=== PATIENT | male | born 1975 | race African-American/Black ===

== ENCOUNTER 2016-09-10 21:50 | Emergency (ER) | payer SELFPAY ==
--- NOTE | 2016-09-10 22:35 | ER Document Report ---
ED General - General Information source: Patient TRAVEL OUTSIDE OF THE [place] IN LAST 30 DAYS: No - HPI Patient complains to provider of: Decreased Appetite Onset: Other - 09/07/2016 Onset/Duration: Gradual, Persistent Associated symptoms: Other - See narrative. denies: Nonproductive cough, Productive cough, Fever <TERRENCE العلي - Last Filed: 09/10/16 22:51> <HARSHAL FAJARDO - Last Filed: 09/11/16 00:54> - General Chief Complaint: Heat Exposure Stated Complaint: WEAKNESS Time Seen by Provider: 09/10/16 22:34 Notes: Patient is a 40-year-old male, with history of hypertension, presenting to the emergency department concerned because he has no appetite after significant exercise , September 06, 2016. Patient states that he decided to ride his bike for exercise 09/06, and 09/07/16 was working in the sun all afternoon. Patient states she has not felt well since. Has had no appetite and bilateral leg cramps. Patient reports drinking water, denies fever or cough. Patient's primary care physician is Dr. Mccormack. (TERRENCE العلي) - Related Data Allergies/Adverse Reactions: No Known Allergies Allergy (Verified 02/12/16 12:34) Past Medical History - General Information source: Patient - Social History Smoking Status: Never Smoker Cigarette use (# per day): No Frequency of alcohol use: None Family History: Reviewed & Not Pertinent, CAD, CVA, DM, Hyperlipidemia, Hypertension, Thyroid Disfunction Patient has suicidal ideation: No Patient has homicidal ideation: No - Past Medical History Cardiac Medical History: Reports: Hx Hypercholesterolemia - Was taken off medication, Hx Hypertension Renal/ Medical History: Reports: Hx Kidney Stones. Denies: Hx Peritoneal Dialysis Past Surgical History: Reports: Hx Inguinal Hernia - Immunizations Hx Diphtheria, Pertussis, Tetanus Vaccination: Yes <TERRENCE العلي - Last Filed: 09/10/16 22:51> Review of Systems - Review of Systems Constitutional: No symptoms reported. denies: Fever EENT: No symptoms reported Cardiovascular: No symptoms reported Respiratory: No symptoms reported. denies: Cough Gastrointestinal: See HPI, Poor appetite. denies: Nausea, Poor fluid intake Genitourinary: No symptoms reported Male Genitourinary: No symptoms reported Musculoskeletal: See HPI, Other - Bilateral leg cramping Skin: No symptoms reported Hematologic/Lymphatic: No symptoms reported Neurological/Psychological: No symptoms reported -: Yes All other systems reviewed and negative <NINA العليICA - Last Filed: 09/10/16 22:51> Physical Exam - General General appearance: Alert In distress: None - HEENT Head: Normocephalic, Atraumatic Eyes: Normal Pupils: PERRL - Respiratory Respiratory status: No respiratory distress Chest status: Nontender Breath sounds: Normal Chest palpation: Normal - Cardiovascular Rhythm: Regular Heart sounds: Normal auscultation Murmur: No - Abdominal Inspection: Normal Distension: No distension Bowel sounds: Normal Tenderness: Nontender Organomegaly: No organomegaly - Back Back: Normal, Nontender - Extremities General upper extremity: Normal inspection, Nontender General lower extremity: Normal inspection, Nontender - Neurological Neuro grossly intact: Yes Cognition: Normal Orientation: AAOx4 [place] Coma Scale Eye Opening: Spontaneous [place] Coma Scale Verbal: Oriented [place] Coma Scale Motor: Obeys Commands [place] Coma Scale Total: 15 Speech: Normal - Psychological Associated symptoms: Normal affect, Normal mood - Skin Skin Temperature: Warm Skin Moisture: Dry Skin Color: Normal <SEVERIANOTERRENCE - Last Filed: 09/10/16 22:51> Course <SEVERIANOTERRENCE - Last Filed: 09/10/16 22:51> - Laboratory Result Diagrams: 09/10/16 22:57 09/10/16 23:35 <HARSHAL FAJARDO - Last Filed: 09/11/16 00:54> - Re-evaluation Re-evalutation: 09/11/16 00:52 The patient does admit that when he was working in the heat on Saturday he was not urinating much if any. He reports he did drink a lot of fluids, but he was not urinating. I explained to him that he has to drink enough fluids that he does have to urinate otherwise he will get dehydrated and injure his kidneys again as he has in the past. (HARSHAL FAJARDO) - Vital Signs Vital signs: Temp Pulse Resp BP Pulse Ox 98.0 F 97 16 143/106 H 98 09/10/16 21:56 09/10/16 21:56 09/10/16 21:56 09/10/16 21:56 09/10/16 21:56 - Laboratory Laboratory results interpreted by me: 09/10/16 09/10/16 09/10/16 22:57 23:35 23:55 RBC 5.98 H RDW 16.6 H Plt Count 111 L Creatinine 1.56 H Est GFR (Non-Af Amer) 50 L Direct Bilirubin 0.5 H Creatine Kinase 610 H Total Protein 8.5 H Urine Protein 30 H Urine Ketones TRACE H Urine Blood SMALL H Discharge <TERRENCE العلي - Last Filed: 09/10/16 22:51> <HARSHAL FAJARDO - Last Filed: 09/11/16 00:54> - Discharge Clinical Impression: Dehydration, Renal insufficiency, Poor appetite Rhabdomyolysis Qualifiers: Rhabdomyolysis type: non-traumatic Qualified Code(s): M62.82 - Rhabdomyolysis Condition: Stable Disposition: HOME, SELF-CARE Additional Instructions: Dehydration: Dehydration can result from vomiting or diarrhea, fever, or decreased intake of fluids. If severe, hospitalization and intravenous fluids may be required. Most cases are treated at home with fluids by mouth. For the next 24 hours, drink lots of clear fluids. In mild cases, this can be soda pop or sports drinks. For more severe dehydration, the doctor may recommend special fluids such as Pedialyte or Lytren. Try to get three liters ( 3 quarts) of fluid per day. If vomiting occurs, continue to drink the fluids frequently (every 15 to 20 minutes), but in small amounts (one or two ounces). Depending on the type of dehydration, the doctor may prescribe antinausea medicine or potassium replacements. Call the doctor or return for re-examination if you become progressively weak, vomit repeatedly, or have other new symptoms. Drink lots of fluids tonight and tomorrow. Rest and stay out of the heat for the next few days. Follow-up with your primary care provider for recheck this week. RETURN TO THE EMERGENCY ROOM IF ANY NEW OR WORSENING SYMPTOMS. Scribe Attestation: 09/11/16 00:54 I personally performed the services described in the documentation, reviewed and edited the documentation which was dictated to the scribe in my presence, and it accurately records my words and actions. (HARSHAL FAJARDO) Scribe Documentation - Scribe Written by Boubacar:: Boubacar Bingham, 09/10/2016 2235 acting as scribe for :: Amanda <TERRENCE العلي - Last Filed: 09/10/16 22:51>
[2016-09-10] MEDS ORDERED: NORMAL SALINE 1000 ML 1,000 ML IV ONE ×2 (22:41→23:52)
[2016-09-10 23:11] LABS: ABSOLUTE LYMPHOCYTES (AUTO) 1.5 10^3/uL (0.5-4.7); ABSOLUTE MONOCYTES (AUTO) 0.3 10^3/uL (0.1-1.4); ABSOLUTE NEUT (AUTO) 2.8 10^3/uL (1.7-8.2); BASOPHILS % (AUTO) 0.4 % (0-2); HEMOGLOBIN 16.7 g/dL (13.5-17.0); HGB HCT DIFFERENCE 1.1; LYMPHOCYTES % (AUTO) 32.5 % (13-45); MEAN CORPUSCULAR HGB CONC 34.2 g/dL (32.0-36.0); MEAN CORPUSCULAR VOLUME 82 fl (80-97); MONOCYTES % (AUTO) 7.3 % (3-13); RED BLOOD COUNT 5.98 10^6/uL (4.35-5.55); RED CELL DISTRIBUTION WIDTH 16.6 % (11.5-14.0); SEGMENTED NEUTROPHILS % (AUTO) 58.8 % (42-78); WHITE BLOOD COUNT 4.7 10^3/uL (4.0-10.5)
[2016-09-10 23:55] LABS: ALANINE AMINOTRANSFERASE 46 U/L (21-72); ALBUMIN 4.4 g/dL (3.5-5.0); ALKALINE PHOSPHATASE 67 U/L (38-126); ANION GAP 12 (5-19); ASPARTATE AMINO TRANSFERASE 48 U/L (17-59); BILIRUBIN,DIRECT 0.5 mg/dL (0.0-0.4); BLOOD UREA NITROGEN 17 mg/dL (7-20); CARBON DIOXIDE 22 mmol/L (22-30); CHLORIDE 106 mmol/L (98-107); CREATINE KINASE 610 U/L (55-170); CREATININE RESULT 1.56 mg/dL (0.52-1.25); GLUCOSE 93 mg/dL (75-110); MAGNESIUM 1.9 mg/dL (1.6-2.3); POTASSIUM 3.6 mmol/L (3.6-5.0); SODIUM 139.9 mmol/L (137-145); TOTAL PROTEIN 8.5 g/dL (6.3-8.2)
[2016-09-11 00:17] LABS: APPEARANCE,URINE CLEAR; BILIRUBIN,URINE NEGATIVE (NEGATIVE); GLUCOSE, URINE NEGATIVE (NEGATIVE); KETONES,URINE TRACE mg/dL (NEGATIVE); LEUKOCYTE ESTERASE,URINE NEGATIVE (NEGATIVE); NITRITE,URINE NEGATIVE (NEGATIVE); PROTEIN,URINE 30 mg/dL (NEGATIVE); UROBILINOGEN,URINE NEGATIVE mg/dL (<2.0)
[2016-09-11 01:04] VITALS: BP 127/92
== END 2016-09-11 01:04 | disposition home or self-care (01) ==
LOC: ER 21:50
DX: M62.82 Rhabdomyolysis (principal); E86.0 Dehydration; N28.9 Disorder of kidney and ureter, unspecified; R63.0 Anorexia; R53.1 Weakness; R25.2 Cramp and spasm
CPT/HCPCS: 99284; 36415; 82550; 83735; 85025; 80053; 81001; J7030 ×2

== ENCOUNTER 2017-03-17 18:02 | Inpatient (IN) | payer OTHER ==
[2017-03-17] MEDS ORDERED: NORMAL SALINE 1000 ML 1,000 ML IV ONE (18:36)
[2017-03-17] MEDS ORDERED: KETOROLAC TROMETHAMINE INJ/PF 30 MG/1 ML SDV IV ONE (18:36)
[2017-03-17] MEDS ORDERED: ONDANSETRON HCL INJ/PF 4 MG/2 ML SDV IV ONE (18:36)
--- NOTE | 2017-03-17 18:43 | ER Document Report ---
ED Medical Screen (RME) - General Chief Complaint: Abdominal, back pain, pain all over. Stated Complaint: STOMACH/BACK PAIN Time Seen by Provider: 03/17/17 18:36 TRAVEL OUTSIDE OF THE [place] IN LAST 30 DAYS: No - Related Data Allergies/Adverse Reactions: No Known Allergies Allergy (Verified 02/12/16 12:34) Home Medications: Current Home Medications Amlodipine Besylate [Norvasc 10 mg Tablet] 1 tab PO DAILY 03/17/17 [History] Metoprolol Tartrate [Metoprolol Tartrate] 1 tab PO DAILY 03/17/17 [History] Past Medical History - Social History Chew tobacco use (# tins/day): No Frequency of alcohol use: None Drug Abuse: None - Past Medical History Cardiac Medical History: Reports: Hx Hypercholesterolemia - Was taken off medication, Hx Hypertension Renal/ Medical History: Reports: Hx Kidney Stones. Denies: Hx Peritoneal Dialysis Past Surgical History: Reports: Hx Inguinal Hernia - Immunizations Hx Diphtheria, Pertussis, Tetanus Vaccination: Yes Physical Exam - Vital signs Vitals: Temp Pulse BP Pulse Ox 100.8 F H 111 H 145/89 H 98 03/17/17 18:21 03/17/17 18:21 03/17/17 18:21 03/17/17 18:21 Course - Vital Signs Vital signs: Temp Pulse Resp BP Pulse Ox 100.8 F H 111 H 145/89 H 98 03/17/17 18:21 03/17/17 18:21 03/17/17 18:21 03/17/17 18:21
[2017-03-17 19:31] LABS: MEAN CORPUSCULAR HEMOGLOBIN 29.5 pg (27.0-33.4); MEAN CORPUSCULAR VOLUME 80 fl (80-97)
[2017-03-17 19:32] LABS: APPEARANCE,URINE CLEAR; BILIRUBIN,URINE NEGATIVE (NEGATIVE); GLUCOSE, URINE NEGATIVE (NEGATIVE); KETONES,URINE NEGATIVE (NEGATIVE); LEUKOCYTE ESTERASE,URINE NEGATIVE (NEGATIVE); NITRITE,URINE NEGATIVE (NEGATIVE); PROTEIN,URINE NEGATIVE (NEGATIVE); URINE SPECIFIC GRAVITY 1.016; UROBILINOGEN,URINE NEGATIVE mg/dL (<2.0)
--- NOTE | 2017-03-17 19:58 | RADIOLOGY REPORT (SQ) ---
EXAM DESCRIPTION: ACUTE ABDOMEN SERIES COMPLETED DATE/TIME: 03/17/2017 7:34 pm REASON FOR STUDY: abd pain COMPARISON: None. NUMBER OF VIEWS: Three views. TECHNIQUE: Frontal chest, supine abdomen and upright/decubitus abdomen radiographic images acquired. LIMITATIONS: None. FINDINGS: CHEST: Lungs clear of infiltrates. FREE AIR: None. No abnormal gas collections. BOWEL GAS PATTERN: Nonobstructive pattern. No dilated loops or air fluid levels. CALCIFICATIONS: No suspicious calcifications. HARDWARE: None in the abdomen. SOFT TISSUES: No gross mass or suggestion of organomegaly. BONES: No acute fracture. No worrisome bone lesions. OTHER: No other significant finding. IMPRESSION: NO RADIOGRAPHIC EVIDENCE FOR ACUTE ABDOMINAL DISEASE. TECHNICAL DOCUMENTATION: JOB ID: [id number] [place]-72 2010 [employer]- All Rights Reserved
[2017-03-17 20:03] LABS: BACTERIA,URINE TRACE /HPF; RBC,URINE 0-1 /HPF; WBC,URINE 0-1 /HPF
[2017-03-17 20:41] LABS: HEMOGLOBIN 15.3 g/dL (13.5-17.0); HGB HCT DIFFERENCE 4.5; RED BLOOD COUNT 5.18 10^6/uL (4.35-5.55); WHITE BLOOD COUNT 13.5 10^3/uL (4.0-10.5)
[2017-03-17 20:42] LABS: HEMATOCRIT 41.4 % (37.9-51.0); MEAN CORPUSCULAR HGB CONC 36.9 g/dL (32.0-36.0); RED CELL DISTRIBUTION WIDTH 15.5 % (11.5-14.0)
[2017-03-17 20:46] LABS: ABSOLUTE EOSINOPHILS# (MANUAL) 0.1 10^3/uL (0.0-0.6); BAND NEUTROPHILS % (MANUAL) 1 % (3-5); BASOPHILS % (MANUAL) 0 % (0-2); EOSINOPHILS % (MANUAL) 1 % (0-6); LYMPHOCYTES % (MANUAL) 7 % (13-45); TOTAL CELLS COUNTED 100
[2017-03-17 20:48] LABS: TOXIC VACUOLATION PRESENT
[2017-03-17 20:49] LABS: ANISOCYTOSIS SLIGHT; MICROCYTOSIS SLIGHT; POIKILOCYTOSIS 1+; STOMATOCYTES 1+; TEAR DROP CELLS SLIGHT
[2017-03-17] MEDS ORDERED: ACETAMINOPHEN 325 MG TABLET PO ONE (21:00)
[2017-03-17 21:50] LABS: ALANINE AMINOTRANSFERASE 39 U/L (21-72); ALBUMIN 4.4 g/dL (3.5-5.0); ALKALINE PHOSPHATASE 64 U/L (38-126); ANION GAP 12 (5-19); ASPARTATE AMINO TRANSFERASE 25 U/L (17-59); BILIRUBIN,DIRECT 0.5 mg/dL (0.0-0.4); BILIRUBIN,TOTAL 0.7 mg/dL (0.2-1.3); BLOOD UREA NITROGEN 11 mg/dL (7-20); CALCIUM 8.8 mg/dL (8.4-10.2); CARBON DIOXIDE 25 mmol/L (22-30); CHLORIDE 103 mmol/L (98-107); CREATININE RESULT 1.04 mg/dL (0.52-1.25); GLUCOSE 116 mg/dL (75-110); LIPASE 1380.9 U/L (23-300); SODIUM 140.2 mmol/L (137-145); TOTAL PROTEIN 7.9 g/dL (6.3-8.2)
[2017-03-17] MEDS ORDERED: MORPHINE SULFATE 10 MG/ML INJ IV ONE (22:31)
--- NOTE | 2017-03-17 22:35 | ER Document Report ---
ED GI/ - General Chief Complaint: Abdominal, back pain, pain all over. Stated Complaint: STOMACH/BACK PAIN Time Seen by Provider: 03/17/17 18:36 Notes: Patient is a 41-year-old male comes emergency department for chief complaint of mid upper abdominal pain that started earlier today, he states that he vomited earlier, he has not eaten anything since this morning. He denies knowledge of fever although he was found to have a fever at triage. Patient states he had a normal bowel movement within the past day. He denies cough, shortness of breath , chest pain, flank pain. He denies any alcohol use, drug use, or smoking. Only past medical history reported is inguinal hernia repair and hypertension. TRAVEL OUTSIDE OF THE [place] IN LAST 30 DAYS: No - Related Data Allergies/Adverse Reactions: No Known Allergies Allergy (Verified 02/12/16 12:34) Home Medications: Current Home Medications Amlodipine Besylate [Norvasc 10 mg Tablet] 1 tab PO DAILY 03/17/17 [History] Metoprolol Tartrate [Metoprolol Tartrate] 1 tab PO DAILY 03/17/17 [History] Past Medical History - General Information source: Patient - Social History Smoking Status: Former Smoker Chew tobacco use (# tins/day): No Frequency of alcohol use: None Drug Abuse: None Lives with: Family Family History: Reviewed & Not Pertinent, CAD, CVA, DM, Hyperlipidemia, Hypertension, Thyroid Disfunction Patient has suicidal ideation: No Patient has homicidal ideation: No - Past Medical History Cardiac Medical History: Reports: Hx Hypercholesterolemia - Was taken off medication, Hx Hypertension Renal/ Medical History: Reports: Hx Kidney Stones. Denies: Hx Peritoneal Dialysis Past Surgical History: Reports: Hx Inguinal Hernia - Immunizations Hx Diphtheria, Pertussis, Tetanus Vaccination: Yes Review of Systems - Review of Systems Constitutional: See HPI EENT: No symptoms reported Cardiovascular: No symptoms reported Respiratory: No symptoms reported Gastrointestinal: See HPI Genitourinary: No symptoms reported Male Genitourinary: No symptoms reported Musculoskeletal: No symptoms reported Skin: No symptoms reported Hematologic/Lymphatic: No symptoms reported Neurological/Psychological: No symptoms reported Physical Exam - Vital signs Vitals: Temp Pulse BP Pulse Ox 100.8 F H 111 H 145/89 H 98 03/17/17 18:21 03/17/17 18:21 03/17/17 18:21 03/17/17 18:21 Interpretation: Normal - General General appearance: Appears well, Alert In distress: None - Patient does not appear to be in distress - HEENT Head: Normocephalic, Atraumatic Eyes: Normal Pupils: PERRL - Respiratory Respiratory status: No respiratory distress Chest status: Nontender Breath sounds: Normal Chest palpation: Normal - Cardiovascular Rhythm: Regular, Tachycardia - Borderline Heart sounds: Normal auscultation, S1 appreciated, S2 appreciated Murmur: No - Abdominal Inspection: Normal Distension: No distension Bowel sounds: Normal Tenderness: Tender - Tender in the epigastric, right upper quadrant, and mildly in the left upper quadrant areas. No guarding. No rigidity or rebound tenderness. Lower abdomen is benign.. No: Guarding - Back Back: Normal, Nontender. No: Tender - Extremities General upper extremity: Normal inspection, Nontender, Normal strength, Normal temperature General lower extremity: Normal inspection, Nontender, Normal strength, Normal temperature - Neurological Neuro grossly intact: Yes Cognition: Normal Orientation: AAOx4 [place] Coma Scale Eye Opening: Spontaneous [place] Coma Scale Verbal: Oriented [place] Coma Scale Motor: Obeys Commands [place] Coma Scale Total: 15 Speech: Normal Motor strength normal: LUE, RUE, LLE, RLE Sensory: Normal - Psychological Associated symptoms: Normal affect, Normal mood - Skin Skin Temperature: Warm Skin Moisture: Dry Skin Color: Normal Course - Re-evaluation Re-evalutation: Patient febrile, he has upper abdominal tenderness on examination with no overt guarding, no rigidity, no rebound tenderness. Concern for potential cholecystitis. Leukocytosis noted, only 1 band. Acute abdominal series was ordered in triage, this was reviewed and shows no concerning abnormalities. Ultrasound performed, shows normal gallbladder, no pericholecystic fluid or stones, normal ducts. Lipase is elevated at 1300, patient is much more comfortable after IV fluids and pain medication, concern because of fever for potential pancreatic abscess or other intra-abdominal pathology. CAT scan was performed after discussion with patient, CAT scan showing pancreatitis, splenomegaly, no acute concerning outer maladies otherwise. Uncertain of the cause of fever, however since there is no evidence of cholecystitis, pneumonia by exam, and no evidence of acute surgical abnormality or abscess at this time patient will not be covered with antibiotics. Potentially viral, mono test will be ordered. Blood cultures were sent. Discussed with Dr. Terrazas. Patient is having pain again, will re-medicate, will discuss with hospitalist for potential admission for acute pancreatitis. Discussed with Dr. Mccormack, patient's provider, patient will be admitted to telemetry. - Vital Signs Vital signs: Temp Pulse Resp BP Pulse Ox 99.1 F 111 H 17 124/86 H 99 03/18/17 03:17 03/17/17 18:21 03/18/17 04:01 03/18/17 04:01 03/18/17 04:01 - Laboratory Result Diagrams: 03/17/17 18:55 03/17/17 21:15 Laboratory results interpreted by me: 03/17/17 03/17/17 03/17/17 18:55 18:55 21:15 WBC 13.5 H MCHC 36.9 H RDW 15.5 H Seg Neuts % (Manual) 89 H Band Neutrophils % 1 L Lymphocytes % (Manual) 7 L Monocytes % (Manual) 2 L Abs Neuts (Manual) 12.2 H Glucose 116 H Direct Bilirubin 0.5 H Lipase 1380.9 H Urine Blood SMALL H Discharge - Discharge Clinical Impression: Upper abdominal pain Pancreatitis Qualifiers: Chronicity: acute Pancreatitis type: unspecified pancreatitis type Acute pancreatitis complication: unspecified Qualified Code(s): K85.90 - Acute pancreatitis without necrosis or infection, unspecified Vomiting Qualifiers: Vomiting type: unspecified Vomiting Intractability: non-intractable Nausea presence: with nausea Qualified Code(s): R11.2 - Nausea with vomiting, unspecified Fever Qualifiers: Fever type: unspecified Qualified Code(s): R50.9 - Fever, unspecified Condition: Stable Disposition: ADMITTED INPATIENT Admitting Provider: Hospitalist Unit Admitted: Telemetry
--- NOTE | 2017-03-17 23:57 | RADIOLOGY REPORT (SQ) ---
EXAM DESCRIPTION: U/S ABDOMEN LIMITED W/O DOP COMPLETED DATE/TIME: 03/17/2017 11:38 pm REASON FOR STUDY: RUQ and epigastric pain, fever, elev lipase COMPARISON: None. TECHNIQUE: Dynamic and static grayscale images acquired of the abdomen and recorded on PACS. Rodo dagoberto selected color Doppler and spectral images recorded. LIMITATIONS: None. FINDINGS: PANCREAS: No masses. Visualized pancreatic duct normal caliber. LIVER: No masses. Echotexture normal. LIVER VASCULATURE: Normal directional flow of the main portal vein and hepatic veins. GALLBLADDER: No stones. Normal wall thickness. No pericholecystic fluid. ULTRASOUND-DETECTED GARCIA'S SIGN: Negative. INTRAHEPATIC DUCTS AND COMMON DUCT: 0.3-cm diameter CBD and intrahepatic ducts normal caliber. No fi lling defects. INFERIOR VENA CAVA: Normal flow. AORTA: No aneurysm. RIGHT KIDNEY: Normal size. Normal echogenicity. No solid or suspicious masses. No hydronephrosis. No calcifications. PERITONEAL AND RIGHT PLEURAL SPACE: No ascites or effusions. OTHER: No other significant findings. IMPRESSION: NORMAL RIGHT UPPER QUADRANT ULTRASOUND. TECHNICAL DOCUMENTATION: JOB ID: [id number] [employer]- All Rights Reserved
[2017-03-18] MEDS ORDERED: NORMAL SALINE 1000 ML 1,000 ML IV ONE (00:35)
--- NOTE | 2017-03-18 01:59 | RADIOLOGY REPORT (SQ) ---
EXAM DESCRIPTION: CT ABD/PELVIS WITH IV ONLY COMPLETED DATE/TIME: 03/18/2017 1:37 am REASON FOR STUDY: fever, upper abd pain, elevated lipase COMPARISON: Ultrasound, 03/17/2017. TECHNIQUE: CT scan of the abdomen and pelvis performed using helical scanning technique with dynamic intravenous contrast injection. No oral contrast. Images reviewed with lung, soft tissue, and bone windows. Reconstructed coronal and sagittal MPR images reviewed. Delayed images for evaluation of the urinary system also acquired. All images stored on PACS. All CT scanners at this facility use dose modulation, iterative reconstruction, and/or weight based d osing when appropriate to reduce radiation dose to as low as reasonably achievable (ALARA). [facility]: Dose Right [facility]: CareDose [facility]: Dose Right [facility]: Teradose 4D [facility]: Life With Linda CONTRAST TYPE AND DOSE: 99 cc Isovue 370. RENAL FUNCTION: Creatinine 1.0. RADIATION DOSE: . LIMITATIONS: None. FINDINGS: LOWER CHEST: No significant findings. No nodules or infiltrates. LIVER: Normal size. No masses. No dilated ducts. SPLEEN: Moderate splenomegaly with splenic index of 1649. No focal lesions. PANCREAS: No masses. No significant calcifications. Small surrounding fluid and moderate inflamed fa t. GALLBLADDER: No identified stones by CT criteria. No inflammatory changes to suggest cholecystitis. ADRENAL GLANDS: No significant masses or asymmetry. RIGHT KIDNEY AND URETER: No solid masses. No significant calcifications. No hydronephrosis or hyd roureter. LEFT KIDNEY AND URETER: No solid masses. 1.0 cm stone. No hydronephrosis or hydroureter. Likely benign 1 cm cyst. AORTA AND VESSELS: No aneurysm. No dissection. Renal arteries, SMA, celiac without stenosis. RETROPERITONEUM: No retroperitoneal adenopathy, hemorrhage or masses. BOWEL AND PERITONEAL CAVITY: No masses or inflammatory changes. No free fluid or peritoneal masses. APPENDIX: Normal. PELVIS: No mass. No free fluid. Normal bladder. ABDOMINAL WALL: No masses. No hernias. BONES: No significant or acute findings. OTHER: No other significant finding. IMPRESSION: 1. Moderate pancreatitis pattern. 2. Moderate splenomegaly. 3. A [address] one. TECHNICAL DOCUMENTATION: JOB ID: [id number] Quality ID # [id number]: Final reports with documentation of one or more dose reduction techniques (e.g., Au tomated exposure control, adjustment of the mA and/or kV according to patient size, use of iterative reconstruction technique) 2010 [employer]- All Rights Reserved
[2017-03-18] MEDS ORDERED: MORPHINE SULFATE 10 MG/ML INJ IV ONE (02:09)
[2017-03-18] MEDS ORDERED: DEXTROSE 40% GEL 15 GM TUBE PO PRN ×2 (11:51)
[2017-03-18] MEDS ORDERED: GLUCAGON,HUMAN RECOMB 1 MG INJ SUBCUT PRN (11:51)
[2017-03-18] MEDS ORDERED: DEXTROSE 50%-WATER 25 GM/50 ML DISP.SYRIN IV PRN ×2 (11:51)
[2017-03-18 12:58] LABS: APPEARANCE,URINE CLEAR; BILIRUBIN,URINE NEGATIVE (NEGATIVE); GLUCOSE, URINE NEGATIVE (NEGATIVE); KETONES,URINE NEGATIVE (NEGATIVE); LEUKOCYTE ESTERASE,URINE NEGATIVE (NEGATIVE); NITRITE,URINE NEGATIVE (NEGATIVE); PROTEIN,URINE NEGATIVE (NEGATIVE); URINE SPECIFIC GRAVITY 1.019; UROBILINOGEN,URINE NEGATIVE mg/dL (<2.0)
[2017-03-18 13:01] LABS: MAGNESIUM 1.7 mg/dL (1.6-2.3); PHOSPHORUS 2.7 mg/dL (2.5-4.5)
[2017-03-18 13:15] LABS: TROPONIN I 0.013 ng/mL
[2017-03-18 13:16] LABS: BACTERIA,URINE 1+ /HPF
[2017-03-18 13:19] LABS: CREATINE KINASE MB < 0.22 ng/mL (<4.55)
[2017-03-18 13:32] LABS: THYROID STIMULATING HORMONE 0.27 uIU/mL (0.47-4.68)
[2017-03-18 13:45] LABS: URINE BARBITURATES SCREEN NEGATIVE; URINE METHADONE SCREEN NEGATIVE; URINE OPIATES LOW UNCONFIRMED POSITIVE; URINE PHENCYCLIDINE SCREEN NEGATIVE
[2017-03-18] MEDS: HYDROMORPHONE HCL INJ/PF 2 MG/ML AMPULE IV PRN ×2 (15:02→19:52)
[2017-03-18] MEDS: HEPARIN SOD (PORCINE) 5,000 UNIT/ML 1 ML SYRINGE SUBCUT SCH ×2 (15:15→22:00)
[2017-03-18 19:13] LABS: CREATINE KINASE MB < 0.22 ng/mL (<4.55); TROPONIN I < 0.012 ng/mL
--- NOTE | 2017-03-18 21:39 | PDOC H&P ---
History of Present Illness Admission Date/PCP: 03/18/17 02:51 AVIS RAY MD History of Present Illness: COSME LAMBERT is a 41 year old male, He came to the emergency room for evaluation of abdominal pain, he was found to have severely elevated serum lipase, CT scan of the abdomen and pelvis was done, it showed inflammation of the pancreas.He does not drink alcohol, the ultrasound of the abdomen did not show any stones in the gallbladder Past Medical History Cardiac Medical History: Reports: Hyperlipidema - Was taken off medication, Hypertension Social History Lives with: Family Smoking Status: Former Smoker Last Time Smoked: [id number] Frequency of Alcohol Use: None Drugs: None Hx Prescription Drug Abuse: No - Advance Directive Resuscitation Status: Full Code Family History Family History: Reviewed & Not Pertinent, CAD, CVA, DM, Hyperlipidemia, Hypertension, Thyroid Disfunction Parental Family History Reviewed: Yes Children Family History Reviewed: Yes Sibling(s) Family History Reviewed.: Yes Medication/Allergy Home Medications: Amlodipine Besylate [Norvasc 10 mg Tablet] 10 mg PO DAILY 03/18/17 Metoprolol Tartrate [Lopressor 100 mg Tablet] 100 mg PO DAILY 03/18/17 Allergies/Adverse Reactions: No Known Allergies Allergy (Verified 03/18/17 15:03) Review of Systems Constitutional: ABSENT: chills, fever(s), headache(s), weight gain, weight loss Eyes: ABSENT: visual disturbances Ears: ABSENT: hearing changes Cardiovascular: ABSENT: chest pain, dyspnea on exertion, edema, orthropnea, palpitations Respiratory: ABSENT: cough, hemoptysis Gastrointestinal: PRESENT: abdominal pain Genitourinary: ABSENT: dysuria, hematuria Musculoskeletal: ABSENT: joint swelling Integumentary: ABSENT: rash, wounds Neurological: ABSENT: abnormal gait, abnormal speech, confusion, dizziness, focal weakness, syncope Psychiatric: ABSENT: anxiety, depression, homidical ideation, suicidal ideation Endocrine: ABSENT: cold intolerance, heat intolerance, menstrual abnormalities, polydipsia, polyuria Hematologic/Lymphatic: ABSENT: easy bleeding, easy bruising, lymphadenopathy Physical Exam Vital Signs: Temp Pulse Resp BP Pulse Ox 99.0 F 107 H 24 H 133/82 H 96 03/18/17 21:05 03/18/17 21:05 03/18/17 21:05 03/18/17 21:05 03/18/17 21:05 Intake & Output 03/17/17 03/18/17 03/19/17 06:59 06:59 06:59 Intake Total 100 Output Total 200 Balance -100 General appearance: PRESENT: no acute distress, well-developed, well-nourished Head exam: PRESENT: atraumatic, normocephalic Eye exam: PRESENT: conjunctiva pink, EOMI, PERRLA Ear exam: PRESENT: normal external ear exam Mouth exam: PRESENT: moist, tongue midline Neck exam: PRESENT: full ROM Respiratory exam: PRESENT: clear to auscultation nakul Cardiovascular exam: PRESENT: RRR, +S1, +S2 Pulses: PRESENT: normal dorsalis pedis pul, +2 pedal pulses bilateral Vascular exam: PRESENT: normal capillary refill GI/Abdominal exam: PRESENT: normal bowel sounds, soft, tenderness Rectal exam: PRESENT: deferred Neurological exam: PRESENT: alert, awake, oriented to person, oriented to place , oriented to time, oriented to situation, CN II-XII grossly intact Psychiatric exam: PRESENT: appropriate affect, normal mood Skin exam: PRESENT: dry, intact, warm Results Laboratory Results: 03/18/17 03/18/17 03/18/17 12:20 12:25 12:25 Phosphorus 2.7 Magnesium 1.7 Ammonia 11.7 TSH 0.27 L Free T4 0.85 Urine Color Urine Appearance Urine pH Ur Specific [place] Urine Protein Urine Glucose (UA) Urine Ketones Urine Blood Urine Nitrite Ur Leukocyte Esterase Ur Squamous Epith Cells 03/18/17 12:25 Phosphorus Magnesium Ammonia TSH Free T4 Urine Color YELLOW Urine Appearance CLEAR Urine pH 6.0 Ur Specific [place] 1.019 Urine Protein NEGATIVE Urine Glucose (UA) NEGATIVE Urine Ketones NEGATIVE Urine Blood NEGATIVE Urine Nitrite NEGATIVE Ur Leukocyte Esterase NEGATIVE Ur Squamous Epith Cells FEW 03/18/17 03/18/17 03/18/17 12:25 12:25 12:25 Creatine Kinase 108 CK-MB (CK-2) < 0.22 Troponin I 0.013 NT-Pro-B Natriuret Pep 132 H 03/18/17 03/18/17 18:37 18:37 Creatine Kinase 86 CK-MB (CK-2) < 0.22 Troponin I < 0.012 NT-Pro-B Natriuret Pep Impressions: Acute Abdomen Series 03/17/17 18:36 IMPRESSION: NO RADIOGRAPHIC EVIDENCE FOR ACUTE ABDOMINAL DISEASE. Abdomen Ultrasound 03/17/17 22:33 IMPRESSION: NORMAL RIGHT UPPER QUADRANT ULTRASOUND. Abdomen/Pelvis CT 03/18/17 00:33 IMPRESSION: 1. Moderate pancreatitis pattern. 2. Moderate splenomegaly. 3. A 1 cm left renal stone. Assessment & Plan - Diagnosis (1) Acute pancreatitis Qualifiers: Pancreatitis type: idiopathic Acute pancreatitis complication: no infection or necrosis Qualified Code(s): K85.00 - Idiopathic acute pancreatitis without necrosis or infection Is this a current diagnosis for this admission?: Yes Plan: Patient was admitted into the hospital for the management of acute pancreatitis is most likely for metabolic, hyperlipidemia he be kept n.p.o.
[2017-03-18] MEDS: DEXTROSE 5%-NORMAL SALINE 1,000 ML IV PRN (22:01)
[2017-03-19 01:03] LABS: CREATINE KINASE MB < 0.22 ng/mL (<4.55); TROPONIN I < 0.012 ng/mL
[2017-03-19] MEDS: HYDROMORPHONE HCL INJ/PF 2 MG/ML AMPULE IV PRN ×4 (02:33→19:54)
[2017-03-19] MEDS: DEXTROSE 5%-NORMAL SALINE 1,000 ML IV PRN ×2 (02:35→21:15)
[2017-03-19] MEDS: HEPARIN SOD (PORCINE) 5,000 UNIT/ML 1 ML SYRINGE SUBCUT SCH ×3 (06:19→20:25)
[2017-03-19 06:36] LABS: ABSOLUTE LYMPHOCYTES (AUTO) 1.2 10^3/uL (0.5-4.7); ABSOLUTE MONOCYTES (AUTO) 0.4 10^3/uL (0.1-1.4); BASOPHILS % (AUTO) 0.3 % (0-2); EOSINOPHILS % (AUTO) 0.3 % (0-6); HGB HCT DIFFERENCE 1.3; LYMPHOCYTES % (AUTO) 15.9 % (13-45); MEAN CORPUSCULAR HEMOGLOBIN 28.2 pg (27.0-33.4); MEAN CORPUSCULAR HGB CONC 34.7 g/dL (32.0-36.0); MEAN CORPUSCULAR VOLUME 81 fl (80-97); MONOCYTES % (AUTO) 4.9 % (3-13); RED BLOOD COUNT 3.93 10^6/uL (4.35-5.55); SEGMENTED NEUTROPHILS % (AUTO) 78.6 % (42-78); WHITE BLOOD COUNT 7.7 10^3/uL (4.0-10.5)
[2017-03-19 06:41] LABS: ALANINE AMINOTRANSFERASE 30 U/L (21-72); ALBUMIN 3.5 g/dL (3.5-5.0); ALKALINE PHOSPHATASE 49 U/L (38-126); AMYLASE 92 U/L (30-110); ANION GAP 10 (5-19); ASPARTATE AMINO TRANSFERASE 18 U/L (17-59); BILIRUBIN,DIRECT 0.5 mg/dL (0.0-0.4); BILIRUBIN,TOTAL 0.8 mg/dL (0.2-1.3); BLOOD UREA NITROGEN 12 mg/dL (7-20); CALCIUM 8.5 mg/dL (8.4-10.2); CARBON DIOXIDE 28 mmol/L (22-30); CHLORIDE 104 mmol/L (98-107); CREATININE RESULT 1.13 mg/dL (0.52-1.25); Direct HDL 28 mg/dL (>40); GLUCOSE 111 mg/dL (75-110); LIPASE 264.2 U/L (23-300); POTASSIUM 3.8 mmol/L (3.6-5.0); SODIUM 142.3 mmol/L (137-145); TOTAL PROTEIN 6.8 g/dL (6.3-8.2)
[2017-03-19 06:52] LABS: DIRECT LDL 46 mg/dL (<100)
[2017-03-19 07:00] LABS: CHOLESTEROL 455.64 mg/dL (0-200); TRIGLYCERIDES 739 mg/dL (<150)
[2017-03-19 07:44] LABS: HEMOGLOBIN 11.1 g/dL (13.5-17.0)
--- NOTE | 2017-03-19 22:04 | PDOC PROGRESS REPORT ---
Subjective Progress Note for:: 03/19/17 Subjective:: Patient was seen by the bedside, he has less abdominal pain, the lipase is down , abdomen is soft, the etiology of the acute pancreatitis is most likely hypertriglyceridemia. Reason For Visit: ACUTE PANCREATITIS Physical Exam Vital Signs: Temp Pulse Resp BP Pulse Ox 99.3 F 105 H 16 121/76 100 03/19/17 16:49 03/19/17 19:00 03/19/17 16:49 03/19/17 16:49 03/19/17 16:49 Intake & Output 03/18/17 03/19/17 03/20/17 06:59 06:59 06:59 Intake Total 1300 900 Output Total 1000 800 Balance 300 100 Weight 96.3 kg General appearance: PRESENT: no acute distress Eye exam: PRESENT: PERRLA Respiratory exam: PRESENT: clear to auscultation nakul Cardiovascular exam: PRESENT: +S1, +S2 GI/Abdominal exam: PRESENT: soft Neurological exam: PRESENT: alert Results Laboratory Results: 03/19/17 05:49 03/19/17 05:49 03/19/17 03/19/17 05:49 05:49 WBC 7.7 RBC 3.93 L Hgb 11.1 L D Hct 32.0 L MCV 81 MCH 28.2 MCHC 34.7 RDW 16.0 H Plt Count 90 L Seg Neutrophils % 78.6 H Lymphocytes % 15.9 Monocytes % 4.9 Eosinophils % 0.3 Basophils % 0.3 Absolute Neutrophils 6.0 Absolute Lymphocytes 1.2 Absolute Monocytes 0.4 Absolute Eosinophils 0.0 Absolute Basophils 0.0 Sodium 142.3 Potassium 3.8 Chloride 104 Carbon Dioxide 28 Anion Gap 10 BUN 12 Creatinine 1.13 Est GFR ( Amer) > 60 Est GFR (Non-Af Amer) > 60 Glucose 111 H Calcium 8.5 Total Bilirubin 0.8 AST 18 ALT 30 Alkaline Phosphatase 49 Total Protein 6.8 Albumin 3.5 Triglycerides 739 H Cholesterol 455.64 H LDL Cholesterol Direct 46 VLDL Cholesterol UNABLE TO CALCULATE HDL Cholesterol 28 L Amylase 92 Lipase 264.2 03/18/17 03/18/17 03/18/17 12:25 12:25 12:25 Creatine Kinase 108 CK-MB (CK-2) < 0.22 Troponin I 0.013 NT-Pro-B Natriuret Pep 132 H 03/18/17 03/18/17 03/19/17 18:37 18:37 00:25 Creatine Kinase 86 78 CK-MB (CK-2) < 0.22 Troponin I < 0.012 NT-Pro-B Natriuret Pep 03/19/17 00:25 Creatine Kinase CK-MB (CK-2) < 0.22 Troponin I < 0.012 NT-Pro-B Natriuret Pep Impressions: Acute Abdomen Series 03/17/17 18:36 IMPRESSION: NO RADIOGRAPHIC EVIDENCE FOR ACUTE ABDOMINAL DISEASE. Abdomen Ultrasound 03/17/17 22:33 IMPRESSION: NORMAL RIGHT UPPER QUADRANT ULTRASOUND. Abdomen/Pelvis CT 03/18/17 00:33 IMPRESSION: 1. Moderate pancreatitis pattern. 2. Moderate splenomegaly. 3. A 1 cm left renal stone. Assessment & Plan - Diagnosis (1) Acute pancreatitis Qualifiers: Pancreatitis type: idiopathic Acute pancreatitis complication: no infection or necrosis Qualified Code(s): K85.00 - Idiopathic acute pancreatitis without necrosis or infection Is this a current diagnosis for this admission?: Yes
[2017-03-20] MEDS: HEPARIN SOD (PORCINE) 5,000 UNIT/ML 1 ML SYRINGE SUBCUT SCH ×2 (01:21→13:50)
[2017-03-20] MEDS: HYDROMORPHONE HCL INJ/PF 2 MG/ML AMPULE IV PRN ×2 (03:49→12:24)
[2017-03-20 04:40] LABS: ABSOLUTE EOSINOPHILS # (AUTO) 0.1 10^3/uL (0.0-0.6); ABSOLUTE LYMPHOCYTES (AUTO) 1.2 10^3/uL (0.5-4.7); ABSOLUTE MONOCYTES (AUTO) 0.3 10^3/uL (0.1-1.4); BASOPHILS % (AUTO) 0.3 % (0-2); HEMATOCRIT 32.4 % (37.9-51.0); HEMOGLOBIN 11.2 g/dL (13.5-17.0); HGB HCT DIFFERENCE 1.2; LYMPHOCYTES % (AUTO) 18.3 % (13-45); MEAN CORPUSCULAR HEMOGLOBIN 27.8 pg (27.0-33.4); MEAN CORPUSCULAR HGB CONC 34.6 g/dL (32.0-36.0); MEAN CORPUSCULAR VOLUME 80 fl (80-97); MONOCYTES % (AUTO) 4.7 % (3-13); RED BLOOD COUNT 4.03 10^6/uL (4.35-5.55); RED CELL DISTRIBUTION WIDTH 15.4 % (11.5-14.0); SEGMENTED NEUTROPHILS % (AUTO) 75.7 % (42-78); WHITE BLOOD COUNT 6.5 10^3/uL (4.0-10.5)
[2017-03-20 04:51] LABS: ALBUMIN 3.7 g/dL (3.5-5.0); AMYLASE 110 U/L (30-110); ANION GAP 11 (5-19); CARBON DIOXIDE 27 mmol/L (22-30); CHLORIDE 105 mmol/L (98-107); CREATININE RESULT 1.11 mg/dL (0.52-1.25); GLUCOSE 112 mg/dL (75-110); POTASSIUM 3.8 mmol/L (3.6-5.0); SODIUM 142.9 mmol/L (137-145); TOTAL PROTEIN 7.1 g/dL (6.3-8.2)
[2017-03-20 04:52] LABS: ALANINE AMINOTRANSFERASE 35 U/L (21-72); ALKALINE PHOSPHATASE 56 U/L (38-126); ASPARTATE AMINO TRANSFERASE 17 U/L (17-59); BILIRUBIN,DIRECT 0.5 mg/dL (0.0-0.4); BILIRUBIN,TOTAL 0.7 mg/dL (0.2-1.3); BLOOD UREA NITROGEN 10 mg/dL (7-20); LIPASE 352.6 U/L (23-300)
[2017-03-20] MEDS: DEXTROSE 5%-NORMAL SALINE 1,000 ML IV PRN (08:37)
--- NOTE | 2017-03-20 16:11 | PDOC DISCHARGE SUMMARY ---
General - Admit/Disc Date/PCP Admission Date/Primary Care Provider: 03/18/17 02:51 AVIS RAY MD Discharge Date: 03/20/17 - Discharge Diagnosis (1) Acute pancreatitis Is this a current diagnosis for this admission?: Yes (2) Hypertriglyceridemia Is this a current diagnosis for this admission?: Yes - Additional Information Resuscitation Status: Full Code Discharge Diet: Regular Discharge Activity: Activity As Tolerated Home Medications: Amlodipine Besylate [Norvasc 10 mg Tablet] 10 mg PO DAILY 03/18/17 Metoprolol Tartrate [Lopressor 100 mg Tablet] 100 mg PO DAILY 03/18/17 Fenofibrate Nanocrystallized [Tricor 145 mg Tablet] 145 mg PO DAILY #90 tablet 03/20/17 Tramadol HCl 50 mg PO Q8 PRN #30 tablet 03/20/17 History of Present Illness History of Present Illness: COSME LAMBERT is a 41 year old male, He came to the emergency room for evaluation of abdominal pain, he was found to have severely elevated serum lipase, CT scan of the abdomen and pelvis was done, it showed inflammation of the pancreas.He does not drink alcohol, the ultrasound of the abdomen did not show any stones in the gallbladder Hospital Course Hospital Course: Patient was admitted for the management of acute pancreatitis, he presented with abdominal pain, he had elevated serum lipase, CT scan of the abdomen and pelvis was done IT showed inflamed pancreas. Ultrasound of the gallbladder was negative for stones, a CAT scan of the abdomen and pelvis confirmed pancreatitis.. He was managed conservatively, he was kept n.p.o. IV fluid therapy, pain control with Dilaudid the serum triglyceride was elevated, it was felt that this is the potential etiology of the acute pancreatitis. Patient has remained stable for the last 2 days he be discharged home today, he does not drink alcohol Physical Exam Vital Signs: Temp Pulse Resp BP Pulse Ox 99.3 F 84 16 124/83 98 03/20/17 12:40 03/20/17 13:49 03/20/17 12:40 03/20/17 12:40 03/20/17 12:40 Intake & Output 03/19/17 03/20/17 03/21/17 06:59 06:59 06:59 Intake Total 1300 2100 Output Total 1000 1275 Balance 300 825 Weight 96.3 kg 95.2 kg General appearance: PRESENT: no acute distress, well-developed, well-nourished Head exam: PRESENT: atraumatic, normocephalic Eye exam: PRESENT: conjunctiva pink, EOMI, PERRLA Ear exam: PRESENT: normal external ear exam Mouth exam: PRESENT: moist, tongue midline Neck exam: PRESENT: full ROM Respiratory exam: PRESENT: clear to auscultation nakul Cardiovascular exam: PRESENT: RRR, +S1, +S2 Pulses: PRESENT: normal dorsalis pedis pul, +2 pedal pulses bilateral Vascular exam: PRESENT: normal capillary refill GI/Abdominal exam: PRESENT: normal bowel sounds, soft Rectal exam: PRESENT: deferred Neurological exam: PRESENT: alert, awake, oriented to person, oriented to place , oriented to time, oriented to situation, CN II-XII grossly intact Psychiatric exam: PRESENT: appropriate affect, normal mood Skin exam: PRESENT: dry, intact, warm Results Laboratory Results: 03/20/17 03:38 03/20/17 03:38 03/20/17 03/20/17 03:38 03:38 WBC 6.5 RBC 4.03 L Hgb 11.2 L Hct 32.4 L MCV 80 MCH 27.8 MCHC 34.6 RDW 15.4 H Plt Count 93 L Seg Neutrophils % 75.7 Lymphocytes % 18.3 Monocytes % 4.7 Eosinophils % 1.0 Basophils % 0.3 Absolute Neutrophils 5.0 Absolute Lymphocytes 1.2 Absolute Monocytes 0.3 Absolute Eosinophils 0.1 Absolute Basophils 0.0 Sodium 142.9 Potassium 3.8 Chloride 105 Carbon Dioxide 27 Anion Gap 11 BUN 10 Creatinine 1.11 Est GFR ( Amer) > 60 Est GFR (Non-Af Amer) > 60 Glucose 112 H Calcium 9.0 Total Bilirubin 0.7 AST 17 ALT 35 Alkaline Phosphatase 56 Total Protein 7.1 Albumin 3.7 Amylase 110 Lipase 352.6 H 03/18/17 03/18/17 03/18/17 12:25 12:25 12:25 Creatine Kinase 108 CK-MB (CK-2) < 0.22 Troponin I 0.013 NT-Pro-B Natriuret Pep 132 H 03/18/17 03/18/17 03/19/17 18:37 18:37 00:25 Creatine Kinase 86 78 CK-MB (CK-2) < 0.22 Troponin I < 0.012 NT-Pro-B Natriuret Pep 03/19/17 00:25 Creatine Kinase CK-MB (CK-2) < 0.22 Troponin I < 0.012 NT-Pro-B Natriuret Pep Impressions: Acute Abdomen Series 03/17/17 18:36 IMPRESSION: NO RADIOGRAPHIC EVIDENCE FOR ACUTE ABDOMINAL DISEASE. Abdomen Ultrasound 03/17/17 22:33 IMPRESSION: NORMAL RIGHT UPPER QUADRANT ULTRASOUND. Abdomen/Pelvis CT 03/18/17 00:33 IMPRESSION: 1. Moderate pancreatitis pattern. 2. Moderate splenomegaly. 3. A 1 cm left renal stone.
[2017-03-20 16:16] VITALS: BP 131/76
== END 2017-03-20 17:21 | disposition home or self-care (01) | DRG 440 ==
LOC: ER 18:02 → EH 03-18 02:51 → 3N 03-18 18:24
PROVIDERS: ADMIT Internal Medicine; ATTEND Internal Medicine
DX: K85.00 Idiopathic acute pancreatitis without necrosis or infection (principal); E78.1 Pure hyperglyceridemia; E78.5 Hyperlipidemia, unspecified; I10 Essential (primary) hypertension; N20.0 Calculus of kidney; Z79.899 Other long term (current) drug therapy; Z87.891 Personal history of nicotine dependence; Z82.3 Family history of stroke; Z83.3 Family history of diabetes mellitus; Z83.49 Family history of other endocrine, nutritional and metabolic diseases; Z82.49 Family history of ischemic heart disease and other diseases of the circulatory system
CPT/HCPCS: 36415; 74022; 74177; 76705; 80048; 80053; 80061; 80076; 80307; 81001; 82140; 82150; 82550; 82553; 83036; 83690; 83735; 83880; 84100; 84439; 84443; 84484; 85025; 86308; 87040; 96361; 96374; 96375; 99285; J1170; J1644; J1885; J2270; J2405; J7030

== ENCOUNTER 2017-12-18 11:52 | Emergency (ER) | payer OTHER ==
[2017-12-18] MEDS ORDERED: NORMAL SALINE 1000 ML 1,000 ML IV ONE ×2 (12:40→15:30)
--- NOTE | 2017-12-18 12:41 | ER Document Report ---
HPI - HPI Pain Level: 4 Past Medical History - General Information source: Patient - Social History Smoking Status: Current Every Day Smoker Lives with: Family Family History: Reviewed & Not Pertinent, CAD, CVA, DM, Hyperlipidemia, Hypertension, Thyroid Disfunction - Past Medical History Cardiac Medical History: Reports: Hx Hypercholesterolemia - Was taken off medication, Hx Hypertension Renal/ Medical History: Reports: Hx Kidney Stones Past Surgical History: Reports: Hx Inguinal Hernia - Immunizations Hx Diphtheria, Pertussis, Tetanus Vaccination: Yes Vertical Provider Document - CONSTITUTIONAL Agree With Documented VS: Yes Exam Limitations: No Limitations - INFECTION CONTROL TRAVEL OUTSIDE OF THE [place] IN LAST 30 DAYS: No - HEENT HEENT: Normal ENT Exam - NECK Neck: Supple. negative: Lymphadenopathy-Left, Lymphadenopathy-Right - RESPIRATORY Respiratory: Breath Sounds Normal, No Respiratory Distress - CARDIOVASCULAR Cardiovascular: Regular Rate, Regular Rhythm - GI/ABDOMEN Gastrointestinal: Abdomen Soft, Abdomen Non-Tender, No Organomegaly - MUSCULOSKELETAL/EXTREMETIES Musculoskeletal/Extremeties: MAEW, FROM, Non-Tender Notes: no swelling - NEURO Level of Consciousness: Awake, Alert Motor/Sensory: No Motor Deficit, No Sensory Deficit - DERM Integumentary: No Rash Course - Re-evaluation Re-evalutation: 12/18/17 14:24 pt feels better, IV infusing. The chemistry was hemolyzed and they have not redrawn him yet. 12/18/17 14:25 12/18/17 15:28 lab redrew the chemistry and sent to the lab via tube. Chemistry said that she will get Dasha to come draw out and walk the tube down and I told her it needed to be run stat - Vital Signs Vital signs: Temp Pulse Resp BP Pulse Ox 98.6 F 71 18 139/104 H 100 12/18/17 11:56 12/18/17 11:56 12/18/17 11:56 12/18/17 11:56 12/18/17 11:56 - Laboratory Result Diagrams: 12/18/17 13:05 12/18/17 15:45 Discharge - Discharge Clinical Impression: Decreased appetite Vomiting Qualifiers: Vomiting type: unspecified Vomiting Intractability: non-intractable Nausea presence: with nausea Qualified Code(s): R11.2 - Nausea with vomiting, unspecified Leg pain Qualifiers: Laterality: bilateral Qualified Code(s): M79.604 - Pain in right leg; M79.605 - Pain in left leg; M79.605 - Pain in left leg Condition: Good Disposition: HOME, SELF-CARE Instructions: Vomiting ([facility]), Intravenous (IV) Fluids ([facility]), Leg Cramps ([facility]) Additional Instructions: Drink plenty of fluids, advance diet as tolerated Return to the emergency room any concerns or worsening of symptoms Referrals: AVIS RAY MD [Primary Care Provider] - Follow up tomorrow
[2017-12-18 13:47] LABS: APPEARANCE,URINE CLEAR; BILIRUBIN,URINE NEGATIVE (NEGATIVE); COLOR,URINE YELLOW; GLUCOSE, URINE NEGATIVE (NEGATIVE); KETONES,URINE NEGATIVE (NEGATIVE); LEUKOCYTE ESTERASE,URINE TRACE (NEGATIVE); NITRITE,URINE NEGATIVE (NEGATIVE); PROTEIN,URINE 30 mg/dL (NEGATIVE); URINE SPECIFIC GRAVITY 1.021
[2017-12-18 13:54] LABS: HEMATOCRIT 43.6 % (37.9-51.0); HEMOGLOBIN 15.1 g/dL (13.5-17.0); MEAN CORPUSCULAR HEMOGLOBIN 27.9 pg (27.0-33.4); MEAN CORPUSCULAR HGB CONC 34.6 g/dL (32.0-36.0); MEAN CORPUSCULAR VOLUME 81 fl (80-97); PLATELET COUNT 180 10^3/uL (150-450); RED BLOOD COUNT 5.41 10^6/uL (4.35-5.55); RED CELL DISTRIBUTION WIDTH 16.9 % (11.5-14.0); WHITE BLOOD COUNT 4.5 10^3/uL (4.0-10.5)
[2017-12-18 14:26] LABS: ABSOLUTE LYMPHOCYTES# (MANUAL) 1.3 10^3/uL (0.5-4.7); ABSOLUTE MONOCYTES # (MANUAL) 0.1 10^3/uL (0.1-1.4); ABSOLUTE NEUTROPHILS# (MANUAL) 3.1 10^3/uL (1.7-8.2); ANISOCYTOSIS 1+; BASOPHILS % (MANUAL) 0 % (0-2); EOSINOPHILS % (MANUAL) 2 % (0-6); HYPOCHROMASIA SLIGHT; LYMPHOCYTES % (MANUAL) 28 % (13-45); MONOCYTES % (MANUAL) 2 % (3-13); PLATELET COMMENT ADEQUATE; POLYCHROMASIA SLIGHT; SEGMENTED NEUTROPHILS % (MAN) 68 % (42-78); TOTAL CELLS COUNTED 100
[2017-12-18 16:19] LABS: ALANINE AMINOTRANSFERASE 35 U/L (21-72); ALBUMIN 4.6 g/dL (3.5-5.0); ALKALINE PHOSPHATASE 57 U/L (38-126); ANION GAP 12 (5-19); ASPARTATE AMINO TRANSFERASE 30 U/L (17-59); BILIRUBIN,DIRECT 0.4 mg/dL (0.0-0.4); BILIRUBIN,TOTAL 0.7 mg/dL (0.2-1.3); BLOOD UREA NITROGEN 12 mg/dL (7-20); CALCIUM 9.2 mg/dL (8.4-10.2); CARBON DIOXIDE 24 mmol/L (22-30); CHLORIDE 104 mmol/L (98-107); CREATINE KINASE 245 U/L (55-170); GLUCOSE 95 mg/dL (75-110); LIPASE 92.5 U/L (23-300); POTASSIUM 4.5 mmol/L (3.6-5.0); SODIUM 140.1 mmol/L (137-145); TOTAL PROTEIN 8.8 g/dL (6.3-8.2)
[2017-12-18 18:20] VITALS: BP 131/90
== END 2017-12-18 18:25 | disposition home or self-care (01) ==
LOC: ER 11:52
DX: R63.0 Anorexia (principal); R11.2 Nausea with vomiting, unspecified; M79.604 Pain in right leg; M79.605 Pain in left leg; F17.200 Nicotine dependence, unspecified, uncomplicated; Z68.31 Body mass index [BMI] 31.0-31.9, adult; Z87.442 Personal history of urinary calculi; Z82.49 Family history of ischemic heart disease and other diseases of the circulatory system; Z98.890 Other specified postprocedural states
CPT/HCPCS: 99284; 36415; 82550; 83690; 83735; 85025; 80053; 81001; J7030

== ENCOUNTER 2018-10-29 22:17 | Emergency (ER) | payer SELFPAY ==
[2018-10-30] MEDS ORDERED: OXYCODONE-ACETAMINOPHEN 5-325 MG TABLET PO ONE (00:53)
[2018-10-30] MEDS ORDERED: ONDANSETRON 4 MG TAB.RAPDIS PO ONE (00:53)
--- NOTE | 2018-10-30 00:57 | ER Document Report ---
ED Medical Screen (RME) - General Chief Complaint: Possible Kidney Stone Stated Complaint: SEVERE BACK/RIGHT SIDED PAIN Time Seen by Provider: 10/30/18 00:51 Primary Care Provider: AVIS RAY MD [Primary Care Provider] - Follow up as needed Notes: Patient is a 42-year-old male who presents to the emergency department with a chief complaint of right flank and right lower back pain. Patient states that he has a history of kidney stones and that this feels the same. Patient states that the right lower back pain radiates into the lower abdomen. Patient states it is just hurting. Patient states he is unable to get into a position of comfort. Patient states he is attempted to take Tylenol without relief. Patient denies fever. Patient reports nausea without vomiting or diarrhea. Patient states he has not had any trouble urinating but that his urine does appear to be more dark than normal. Patient states he has had not much p.o. intake today. TRAVEL OUTSIDE OF THE [place] IN LAST 30 DAYS: No - Related Data Allergies/Adverse Reactions: No Known Allergies Allergy (Verified 12/18/17 11:53) Past Medical History - Past Medical History Cardiac Medical History: Reports: Hx Hypercholesterolemia - Was taken off medication, Hx Hypertension Renal/ Medical History: Reports: Hx Kidney Stones. Denies: Hx Peritoneal Dialysis Past Surgical History: Reports: Hx Inguinal Hernia - Immunizations Hx Diphtheria, Pertussis, Tetanus Vaccination: Yes History of Influenza Vaccine for 01/2017 - 06/2017 Season: Refused Physical Exam - Vital signs Vitals: Temp Pulse Resp BP Pulse Ox 98.2 F 59 L 18 131/95 H 98 10/29/18 22:29 10/29/18 22:29 10/29/18 22:29 10/29/18 22:29 10/29/18 22:29 - Respiratory Respiratory status: No respiratory distress Chest status: Nontender Breath sounds: Normal Chest palpation: Normal - Abdominal Inspection: Normal Distension: No distension Bowel sounds: Normal Tenderness: Nontender Organomegaly: No organomegaly - Back Back: Normal - No CVA tenderness Course - Re-evaluation Re-evalutation: 10/30/18 00:57 I have greeted and performed a rapid initial assessment of this patient. A comprehensive ED assessment and evaluation of the patient, analysis of test results and completion of the medical decision making process will be conducted by additional ED providers. - Vital Signs Vital signs: Temp Pulse Resp BP Pulse Ox 98.2 F 59 L 18 131/95 H 98 10/29/18 22:29 10/29/18 22:29 10/29/18 22:29 10/29/18 22:29 10/29/18 22:29 Doctor's Discharge - Discharge Referrals: AVIS RAY MD [Primary Care Provider] - Follow up as needed
[2018-10-30 01:18] LABS: ABSOLUTE LYMPHOCYTES (AUTO) 0.9 10^3/uL (0.5-4.7); ABSOLUTE MONOCYTES (AUTO) 0.3 10^3/uL (0.1-1.4); ABSOLUTE NEUT (AUTO) 5.1 10^3/uL (1.7-8.2); BASOPHILS % (AUTO) 0.1 % (0-2); EOSINOPHILS % (AUTO) 0.2 % (0-6); HEMATOCRIT 42.6 % (37.9-51.0); HEMOGLOBIN 14.3 g/dL (13.5-17.0); LYMPHOCYTES % (AUTO) 14.1 % (13-45); MEAN CORPUSCULAR HEMOGLOBIN 28.5 pg (27.0-33.4); MEAN CORPUSCULAR HGB CONC 33.6 g/dL (32.0-36.0); MEAN CORPUSCULAR VOLUME 85 fl (80-97); MONOCYTES % (AUTO) 4.6 % (3-13); PLATELET COUNT 160 10^3/uL (150-450); RED BLOOD COUNT 5.02 10^6/uL (4.35-5.55); RED CELL DISTRIBUTION WIDTH 14.7 % (11.5-14.0); TOTAL CELLS COUNTED % (AUTO) 100 %; WHITE BLOOD COUNT 6.4 10^3/uL (4.0-10.5)
[2018-10-30 01:32] LABS: ALANINE AMINOTRANSFERASE 35 U/L (21-72); ALBUMIN 4.8 g/dL (3.5-5.0); ALKALINE PHOSPHATASE 49 U/L (38-126); ANION GAP 12 (5-19); ASPARTATE AMINO TRANSFERASE 28 U/L (17-59); BILIRUBIN,DIRECT 0.3 mg/dL (0.0-0.4); BILIRUBIN,TOTAL 0.6 mg/dL (0.2-1.3); BLOOD UREA NITROGEN 10 mg/dL (7-20); CALCIUM 9.8 mg/dL (8.4-10.2); CARBON DIOXIDE 24 mmol/L (22-30); CHLORIDE 107 mmol/L (98-107); GLUCOSE 122 mg/dL (75-110); POTASSIUM 3.9 mmol/L (3.6-5.0); SODIUM 142.7 mmol/L (137-145)
[2018-10-30 02:13] LABS: APPEARANCE,URINE CLEAR; BILIRUBIN,URINE NEGATIVE (NEGATIVE); COLOR,URINE YELLOW; GLUCOSE, URINE NEGATIVE (NEGATIVE); KETONES,URINE NEGATIVE (NEGATIVE); LEUKOCYTE ESTERASE,URINE NEGATIVE (NEGATIVE); NITRITE,URINE NEGATIVE (NEGATIVE); PROTEIN,URINE NEGATIVE (NEGATIVE); URINE SPECIFIC GRAVITY 1.023; UROBILINOGEN,URINE NEGATIVE mg/dL (<2.0)
[2018-10-30] MEDS ORDERED: MORPHINE SULFATE 10 MG/ML INJ IV ONE ×2 (04:59→07:18)
[2018-10-30] MEDS ORDERED: KETOROLAC TROMETHAMINE INJ/PF 30 MG/1 ML SDV IV ONE (04:59)
[2018-10-30] MEDS ORDERED: NORMAL SALINE 500 ML IV ONE (05:00)
[2018-10-30] MEDS ORDERED: PROMETHAZINE HCL INJ 50 MG/1 ML VIAL IM ONE (05:01)
--- NOTE | 2018-10-30 05:08 | ER Document Report ---
ED General - General Chief Complaint: Possible Kidney Stone Stated Complaint: SEVERE BACK/RIGHT SIDED PAIN Time Seen by Provider: 10/30/18 00:51 Primary Care Provider: AVIS RAY MD [Primary Care Provider] - Follow up as needed Notes: 42-year-old male who presents to the emergency department with a chief complaint of right flank and right lower back pain. Patient states that he has a history of kidney stones and that this feels the same. Patient states that the right lower back pain radiates into the lower abdomen. Patient states it is just hurting. Patient states he is unable to get into a position of comfort. Patient states he is attempted to take Tylenol without relief. Patient denies fever. Patient reports nausea without vomiting or diarrhea. Patient states he has not had any trouble urinating but that his urine does appear to be more dark than normal. Patient states he has had not much p.o. intake today. TRAVEL OUTSIDE OF THE [place] IN LAST 30 DAYS: No - Related Data Allergies/Adverse Reactions: No Known Allergies Allergy (Verified 12/18/17 11:53) Past Medical History - Social History Smoking Status: Unknown if Ever Smoked Family History: Reviewed & Not Pertinent, CAD, CVA, DM, Hyperlipidemia, Hypertension, Thyroid Disfunction - Past Medical History Cardiac Medical History: Reports: Hx Hypercholesterolemia - Was taken off medication, Hx Hypertension Renal/ Medical History: Reports: Hx Kidney Stones. Denies: Hx Peritoneal Dialysis Past Surgical History: Reports: Hx Inguinal Hernia - Immunizations Hx Diphtheria, Pertussis, Tetanus Vaccination: Yes Review of Systems - Review of Systems Constitutional: See HPI EENT: No symptoms reported Cardiovascular: No symptoms reported Respiratory: See HPI Gastrointestinal: See HPI Genitourinary: See HPI Male Genitourinary: No symptoms reported Musculoskeletal: No symptoms reported Skin: No symptoms reported Hematologic/Lymphatic: No symptoms reported Neurological/Psychological: No symptoms reported Physical Exam - Vital signs Vitals: Temp Pulse Resp BP Pulse Ox 98.2 F 59 L 18 131/95 H 98 10/29/18 22:29 10/29/18 22:29 10/29/18 22:29 10/29/18 22:29 10/29/18 22:29 - Notes Notes: PHYSICAL EXAMINATION: Reviewed vital signs and charting by RN GENERAL: Alert, interacts well. mild distress. HEAD: Normocephalic, atraumatic. EYES: Pupils equal and round. Extraocular movements intact. ENT: Oral mucosa moist, tongue midline. NECK: Full range of motion. Trachea midline. LUNGS: Clear to auscultation bilaterally, no wheezes, rales, or rhonchi. No respiratory distress. HEART: Regular rate and rhythm. No murmur ABDOMEN: soft, non-tender. No distention. Bowel sounds present BACK: R CVAT EXTREMITIES: Moves all 4 extremities spontaneously. No edema, No cyanosis. PSYCH: Normal affect, normal mood. SKIN: Warm, dry, normal turgor. No rashes or lesions noted Course - Re-evaluation Re-evalutation: 10/30/18 05:07 Patient is in mild distress but is nontoxic-appearing. Presentation consistent with previous kidney stones. Patient's urinalysis shows no evidence of a UTI so at this time I am not going to obtain a CT abdomen pelvis as this is his classic presentation. Plan is to place a saline lock and obtain symptom control and when patient is sufficiently comfortable we will discharge him home with a short course of pain medication and Flomax to help pass the stone. 10/30/18 07:01 CT abdomen/pelvis completed. It showed ascites of the liver with splenomegaly but no concerning lymph nodes or any metastases. Patient is incredibly distended and will most likely need IR intervention with for drainage. Will debi rothman the hospitalist and initiate admission 10/30/18 07:19 Patient states he is feeling much better after the initial dose of morphine. He states the pain has come back a little bit so I will give him an additional smaller dose of morphine. A dose of Flomax was also ordered here. A Zofran dispense pack has been ordered. At this time patient feels well enough to go home and he is currently stable for discharge. She has been given strict return precautions. - Vital Signs Vital signs: Temp Pulse Resp BP Pulse Ox 99.1 F 57 L 18 130/89 H 100 10/30/18 06:12 10/30/18 06:12 10/30/18 06:12 10/30/18 06:12 10/30/18 06:12 - Laboratory Result Diagrams: 10/30/18 01:08 10/30/18 01:08 Laboratory results interpreted by me: 10/30/18 10/30/18 10/30/18 01:08 01:08 01:08 RDW 14.7 H Seg Neutrophils % 81.0 H Creatinine 1.35 H Est GFR (Non-Af Amer) 58 L Glucose 122 H Urine Ascorbic Acid 40 H Discharge - Discharge Clinical Impression: Kidney stone on right side Condition: Good Disposition: HOME, SELF-CARE Additional Instructions: Your symptoms should improve over the course of the next one week. If you continue to have pain for greater than one week or your pain is not controlled w ith the pain medications that you have been sent home with you need to return to the emergency department. Please also return if you develop fever, persistent vomiting, or any other symptoms that are concerning to you. You should take ibuprofen 600 mg every 6 hours and use the oral morphine as prescribed only for pain not controlled by ibuprofen. You are also been sent home with a medication called Flomax to help pass the stone. You've been given Zofran to assist with nausea. Please follow-up with urology in the next 2-3 days. Prescriptions: Oxycodone HCl/Acetaminophen [Percocet 5-325 mg Tablet] 1 tab PO Q4H PRN #12 tablet PRN Reason: Tamsulosin HCl [Flomax 0.4 mg Cap.sr] 0.4 mg PO DAILY #7 cap.sr.24h Referrals: AVIS RAY MD [Primary Care Provider] - Follow up as needed
[2018-10-30] MEDS ORDERED: PROMETHAZINE HCL INJ 50 MG/1 ML VIAL ONE (05:38)
[2018-10-30] MEDS ORDERED: NORMAL SALINE 1000 ML 1,000 ML IV ONE (06:58)
[2018-10-30] MEDS ORDERED: TAMSULOSIN HCL 0.4 MG CAP.SR.24H PO ONE (07:18)
[2018-10-30] MEDS ORDERED: ONDANSETRON ODT 4 MG TAB (6 TAB/ER DISP) PO PRN (07:18)
[2018-10-30 09:29] VITALS: BP 113/80
== END 2018-10-30 09:37 | disposition home or self-care (01) ==
LOC: ER 22:17
DX: N20.0 Calculus of kidney (principal); R10.9 Unspecified abdominal pain; M54.9 Dorsalgia, unspecified; E78.00 Pure hypercholesterolemia, unspecified; I10 Essential (primary) hypertension; Z87.442 Personal history of urinary calculi
CPT/HCPCS: 96376; 99284; 96372; 96361; 96374; 96375; 36415; 83690; 85025; 80053; 81001; S0119; J1885; J2270; J2550; J7030; J7040

== ENCOUNTER 2018-11-30 17:26 | Emergency (ER) | payer SELFPAY ==
[2018-11-30] MEDS ORDERED: MORPHINE SULFATE 10 MG/ML INJ IV ONE ×2 (18:14→19:55)
[2018-11-30] MEDS ORDERED: KETOROLAC TROMETHAMINE INJ/PF 30 MG/1 ML SDV IV ONE (18:14)
[2018-11-30] MEDS ORDERED: NORMAL SALINE 1000 ML 1,000 ML IV ONE ×2 (18:14→19:55)
[2018-11-30] MEDS ORDERED: ONDANSETRON HCL INJ/PF 4 MG/2 ML SDV IV ONE ×2 (18:14→19:55)
--- NOTE | 2018-11-30 18:15 | ER Document Report ---
ED Medical Screen (RME) - General Chief Complaint: Possible Kidney Stone Stated Complaint: FLANK PAIN Time Seen by Provider: 11/30/18 18:08 Primary Care Provider: AVIS RAY MD [Primary Care Provider] - Follow up as needed Notes: Patient is a 42-year-old male presents to the emergency department with a chief complaint of left flank pain. Patient states this developed about 2 hours prior to arrival and radiates to the left lower back and left anterior thigh. Patient reports over the past week he has had increased urinary frequency. Patient denies blood in the urine. Patient reports having nausea and an episode of vomiting in the past few hours since developing the pain. Patient states he has a history of kidney stones and that this feels similar. Patient states he was seen here about 1 month ago with the same type of pain but it was on the right side. Patient states he was given Flomax and pain medication which did seem to help with the pain. Patient denies fever, but reports chills. TRAVEL OUTSIDE OF THE [place] IN LAST 30 DAYS: No - Related Data Allergies/Adverse Reactions: No Known Allergies Allergy (Verified 11/30/18 17:26) Past Medical History - Social History Chew tobacco use (# tins/day): No Frequency of alcohol use: Occasional Drug Abuse: None - Past Medical History Cardiac Medical History: Reports: Hx Hypercholesterolemia - Was taken off medication, Hx Hypertension Renal/ Medical History: Reports: Hx Kidney Stones. Denies: Hx Peritoneal Dialysis Past Surgical History: Reports: Hx Inguinal Hernia - Immunizations Hx Diphtheria, Pertussis, Tetanus Vaccination: Yes History of Influenza Vaccine for 01/2017 - 06/2017 Season: Refused Physical Exam - Vital signs Vitals: Temp Pulse Resp BP Pulse Ox 98.2 F 63 15 120/84 100 11/30/18 17:29 11/30/18 17:29 11/30/18 17:29 11/30/18 17:29 11/30/18 17:29 - Abdominal Inspection: Normal Distension: No distension Bowel sounds: Normal Tenderness: Nontender Organomegaly: No organomegaly - Back Notes: No CVA tenderness Course - Re-evaluation Re-evalutation: 11/30/18 18:17 I have greeted and performed a rapid initial assessment of this patient. A c omprehensive ED assessment and evaluation of the patient, analysis of test results and completion of the medical decision making process will be conducted by additional ED providers. - Vital Signs Vital signs: Temp Pulse Resp BP Pulse Ox 98.2 F 63 15 120/84 100 11/30/18 17:29 11/30/18 17:29 11/30/18 17:29 11/30/18 17:29 11/30/18 17:29 Doctor's Discharge - Discharge Referrals: AVIS RAY MD [Primary Care Provider] - Follow up as needed
[2018-11-30 19:01] LABS: ABSOLUTE LYMPHOCYTES (AUTO) 0.7 10^3/uL (0.5-4.7); ABSOLUTE MONOCYTES (AUTO) 0.2 10^3/uL (0.1-1.4); ABSOLUTE NEUT (AUTO) 6.4 10^3/uL (1.7-8.2); BASOPHILS % (AUTO) 0.1 % (0-2); EOSINOPHILS % (AUTO) 0.2 % (0-6); HEMATOCRIT 42.4 % (37.9-51.0); HEMOGLOBIN 14.2 g/dL (13.5-17.0); LYMPHOCYTES % (AUTO) 9.2 % (13-45); MEAN CORPUSCULAR HEMOGLOBIN 28.7 pg (27.0-33.4); MEAN CORPUSCULAR HGB CONC 33.5 g/dL (32.0-36.0); MEAN CORPUSCULAR VOLUME 86 fl (80-97); MONOCYTES % (AUTO) 3.1 % (3-13); PLATELET COUNT 150 10^3/uL (150-450); RED BLOOD COUNT 4.95 10^6/uL (4.35-5.55); RED CELL DISTRIBUTION WIDTH 15.2 % (11.5-14.0); SEGMENTED NEUTROPHILS % (AUTO) 87.4 % (42-78); TOTAL CELLS COUNTED % (AUTO) 100 %; WHITE BLOOD COUNT 7.3 10^3/uL (4.0-10.5)
--- NOTE | 2018-11-30 19:05 | ER Document Report ---
HPI - HPI Patient complains to provider of: left flank pain Time Seen by Provider: 11/30/18 18:08 Onset: Just prior to arrival Onset/Duration: Sudden, Waxing and waning Quality of pain: Sharp Severity: Moderate Pain Level: 4 Context: 42 yr old male pt with the listed pmh, here for left-sided abdominal pain and left flank pain along with one episode of nonbloody nonbilious vomiting for the last few hrs. History of renal stones and it feels similar. States he required surgery for 1 of his renal stones. He does not remember who his urologist is as he was told he likely had a right kidney stone a few months ago but never had any imaging and never followed up and sx eventually subsided. He has had some hematuria and frequency. Denies dysuria. No trauma or injury. no hx of diabetes or asthma. normal bms. no other Uti sx. no testicular pain/swelling, penile dc/rash/lesions, or concerns for stds. denies swelling or hx of hernias. no abd surgeries other than a remote inguinal hernia repair. no recent abx or steroids. hasn't taken anything for sx. no hx of gerd, gb dz, pancreatitis, gi bleed, ulcers, ibs, or crohns. no sick contacts. no uri sx. no rash. no excessive nsaid use or etoh. no recent illness. pain not worse with eating. denies changes in color or caliber of stool. no fall or trauma. no spinal surgeries. no iv drug use. no numbness, tingling ,weakness, saddle anesthesia, or incontinence. no other associated sx. Similar symptoms previously: Yes Recently seen / treated by doctor: No - ROS Systems Reviewed and Negative: Yes All other systems reviewed and negative - To include 10 systems, unless mentioned in the hpi. - DERM Skin Color: Normal Past Medical History - General Information source: Patient - Social History Smoking Status: Current Every Day Smoker Chew tobacco use (# tins/day): No Frequency of alcohol use: Occasional Drug Abuse: None Family History: CAD, CVA, DM, Hyperlipidemia, Hypertension, Thyroid Disfunction Patient has suicidal ideation: No Patient has homicidal ideation: No - Past Medical History Cardiac Medical History: Reports: Hx Hypercholesterolemia - takes metoprolol and amlodipine some times, Hx Hypertension Endocrine Medical History: Reports: None Renal/ Medical History: Reports: Hx Kidney Stones. Denies: Hx Benign Prostatic Hyperplasia, Hx End Stage Renal Disease, Hx Peritoneal Dialysis, Hx Renal Insufficiency GI Medical History: Denies: Hx Crohn's Disease, Hx Diverticulitis, Hx Irritable Bowel, Hx Pancreatitis Past Surgical History: Reports: Hx Herniorrhaphy - remote inguinal hernia repair - Immunizations Immunizations up to date: Yes Hx Diphtheria, Pertussis, Tetanus Vaccination: Yes Vertical Provider Document - CONSTITUTIONAL Agree With Documented VS: Yes Exam Limitations: No Limitations Notes: >>>> PHYSICAL_EXAM: GENERAL_APPEARANCE: well_nourished, alert, cooperative, no_acute_distress, mild obvious_discomfort. Pleasant, middle aged black male, smiling, speaking in full sentences, easily sitting up, in no sign of resp distress, nontoxic, appears in pain when moving, adult female significant other at bedside VITALS: reviewed, see vital signs table. HEAD: normocephalic. atraumatic. no perera signs. no raccoon eyes. EYES: PERRL, EOMI, (-)scleral icterus. NOSE: no_nasal_discharge. MOUTH: (-)decreased moisture. THROAT: no_tonsilar_inflammation/hypertrophy/exudate. no lymphadenopathy NECK: supple, no_neck_tenderness, full rom. full strength. no meningeal signs. BACK: no_back_tenderness. CHEST_WALL: no_chest_tenderness. LUNGS: no_wheezing, (-)accessory muscle use, good air exchange bilateral. HEART: normal_rate, normal_rhythm,, ABDOMEN: normal_BS, soft, abdomen-diffuse, mildly tender suprapubically, (- )guarding, (-)rebound, no distension or peritoneal signs. neg murphys. neg mcburneys. neg heel strike. neg obturator. neg psoas. neg rovsign. no cva tenderness on the right, + left CVA tenderness GENITALS: Deferred by patient RECTAL: deferred EXTREMITIES: strength 5/5 in all_extremities, good pulses in all_extremities, no_edema, no_swelling\tenderness. full rom. normal gait. brisk cap refill. good hand tie cutter. SKIN: warm, dry, good_color, no rash. no grossly visible overlying skin changes to suggest trauma unless otherwise noted. NEURO: motor_intact, sensory_intact. cranial nerves 2-12 intact, cerebellar fxn intact MENTAL_STATUS: normal_affect, speech_clear, oriented_X_3, responds_appropriately to questions. - INFECTION CONTROL TRAVEL OUTSIDE OF THE [place] IN LAST 30 DAYS: No Course - Re-evaluation Re-evalutation: 11/30/18 21:01 Pt here for left flank pain, one episode of vomiting, and also hematuria and frequency x 1 day. His labs were notable for a very slightly elevated creatin ine however it is improved from his previous value last month, and he also has hematuria without pyuria. He has a normal white count. He is pain and nausea controlled. Tolerating p.o. His CT scan of his abdomen and pelvis without contrast did show 8 mm left obstructing stone with mild left hydronephrosis but was otherwise negative per radiology and reviewed by myself. Patient informed of his findings. Will discharge him with Percocet, Zofran, and Flomax along with a urine strainer with instructions of use. Urine culture is pending. Advised we will call with any abnormal results that are still pending that require change in plan of care. Drink plenty of fluids. he didn't want prophyl actic tx for gc and chlam. denies any concerns for stds. gave medication precautions. Advised to f/u with urology in 1-2 days. return for any worsening symptoms. vss. well appearing. satting well on ra. neurononfocal. pt understands and agrees to plan. On reexam, pt improved with tx listed. remained stable. nontoxic. well appearing. pain controlled. tolerating po. requesting to go home. Serial abdominal exams remain benign. neurononfocal. case discussed with ER Attending, Dr. Adan Stern, who directed and agrees with plan of care and advised no further workup indicated at this time and pt is stable for dc home with close f/u with pcp/specialist. Documentation achieved through voice recording which my lead to some occasional accidental typographical errors. Extensive efforts have been made to proof read documentation to make sure these are the least as possible. Category Date Time Status Lock [Saline Lock (ED)] NOW Care 11/30/18 18:14 Completed Strainer [Urine Strainer (ED)] NOW Care 11/30/18 20:[address] ABD/PELVIS NO ORAL OR IV [CT] Stat Exams 11/30/18 19:37 Completed CBC WITH DIFF [HEME] Stat Lab 11/30/18 18:50 Completed [facility] DARREN PCR URINE INHOUSE [MO] Stat Lab 11/30/18 20:20 Received COMPREHENSIVE METABOLIC PANEL [CHEM] Stat Lab 11/30/18 18:50 Completed LIPASE [CHEM] Stat Lab 11/30/18 18:50 Completed URINALYSIS [URIN] Stat Lab 11/30/18 18:40 Completed URINE CULTURE [MC] Stat Lab 11/30/18 18:40 Received Ketorolac Tromethamine [Toradol Inj/Pf 30 mg/1 ml Sdv] Med 11/30/18 18:14 Discontinued 15 mg IV NOW ONE Morphine Sulfate [Morphine 10 mg/ml Inj] Med 11/30/18 18:14 Discontinued 4 mg IV NOW ONE Morphine Sulfate [Morphine 10 mg/ml Inj] Med 11/30/18 19:55 Discontinued 4 mg IV NOW ONE Normal Saline 1000 ml [NaCl 0.9% 1000 ml IV Soln] 1,000 Med 11/30/18 18:14 Discontinued ml IV BOLUS Normal Saline 1000 ml [NaCl 0.9% 1000 ml IV Soln] 1,000 Med 11/30/18 19:55 Discontinued ml IV BOLUS Ondansetron HCl/Pf [Zofran Inj/Pf 4 mg/2 ml Sdv] Med 11/30/18 18:14 Discontinued 4 mg IV NOW ONE Ondansetron HCl/Pf [Zofran Inj/Pf 4 mg/2 ml Sdv] Med 11/30/18 19:55 Discontinued 4 mg IV NOW ONE Oxycodone HCl/Acetaminophen [Percocet 5-325 mg Tablet] Med 11/30/18 20:56 Once 2 tab PO NOW ONE Tamsulosin HCl [Flomax 0.4 mg Cap.sr] Med 11/30/18 20:57 Once 0.4 mg PO NOW ONE - Vital Signs Vital signs: Temp Pulse Resp BP Pulse Ox 98.2 F 63 15 120/84 100 11/30/18 17:29 11/30/18 17:29 11/30/18 17:29 11/30/18 17:29 11/30/18 17:29 Temp Pulse Resp BP Pulse Ox 11/30/18 21:28 98.7 F 68 18 127/77 H 100 11/30/18 17:29 98.2 F 63 15 120/84 100 - Laboratory Result Diagrams: 11/30/18 18:50 11/30/18 18:50 Laboratory results interpreted by me: 11/30/18 18:50 RDW 15.2 H Seg Neutrophils % 87.4 H Lymphocytes % 9.2 L 11/30/18 21:08 Labs- Entire Visit 11/30/18 11/30/18 11/30/18 18:40 18:50 18:50 WBC 7.3 RBC 4.95 Hgb 14.2 Hct 42.4 MCV 86 MCH 28.7 MCHC 33.5 RDW 15.2 H Plt Count 150 Seg Neutrophils % 87.4 H Lymphocytes % 9.2 L Monocytes % 3.1 Eosinophils % 0.2 Basophils % 0.1 Absolute Neutrophils 6.4 Absolute Lymphocytes 0.7 Absolute Monocytes 0.2 Absolute Eosinophils 0.0 Absolute Basophils 0.0 Sodium 141.6 Potassium 4.1 Chloride 103 Carbon Dioxide 30 Anion Gap 9 BUN 14 Creatinine 1.26 H Est GFR ( Amer) > 60 Est GFR (Non-Af Amer) > 60 Glucose 115 H Calcium 9.8 Total Bilirubin 0.4 Direct Bilirubin 0.2 Neonat Total Bilirubin Not Reportable Neonat Direct Bilirubin Not Reportable Neonat Indirect Bili Not Reportable AST 31 ALT 32 Alkaline Phosphatase 49 Total Protein 7.5 Albumin 4.6 Lipase Urine Color YELLOW Urine Appearance CLEAR Urine pH 7.0 Ur Specific Redig 1.015 Urine Protein NEGATIVE Urine Glucose (UA) NEGATIVE Urine Ketones NEGATIVE Urine Blood LARGE H Urine Nitrite NEGATIVE Urine Bilirubin NEGATIVE Urine Urobilinogen NEGATIVE Ur Leukocyte Esterase NEGATIVE Urine WBC (Auto) 3 Urine RBC (Auto) >182 U Hyaline Cast (Auto) 1 Squamous Epi Cells Auto <1 Urine Mucus (Auto) RARE Urine Ascorbic Acid 20 H 11/30/18 18:50 WBC RBC Hgb Hct MCV MCH MCHC RDW Plt Count Seg Neutrophils % Lymphocytes % Monocytes % Eosinophils % Basophils % Absolute Neutrophils Absolute Lymphocytes Absolute Monocytes Absolute Eosinophils Absolute Basophils Sodium Potassium Chloride Carbon Dioxide Anion Gap BUN Creatinine Est GFR ( Amer) Est GFR (Non-Af Amer) Glucose Calcium Total Bilirubin Direct Bilirubin Neonat Total Bilirubin Neonat Direct Bilirubin Neonat Indirect Bili AST ALT Alkaline Phosphatase Total Protein Albumin Lipase 51.6 Urine Color Urine Appearance Urine pH Ur Specific Redig Urine Protein Urine Glucose (UA) Urine Ketones Urine Blood Urine Nitrite Urine Bilirubin Urine Urobilinogen Ur Leukocyte Esterase Urine WBC (Auto) Urine RBC (Auto) U Hyaline Cast (Auto) Squamous Epi Cells Auto Urine Mucus (Auto) Urine Ascorbic Acid - Diagnostic Test Radiology reviewed: Image reviewed, Reports reviewed Radiology results interpreted by me: 11/30/18 21:08 Abdomen/Pelvis CT 11/30/18 19:37 IMPRESSION: 8 mm obstructing stone in the proximal left ureter with mild left hydronephrosis. Discharge - Discharge Clinical Impression: Renal stone Hydronephrosis Qualifiers: Hydronephrosis type: with ureteral calculous obstruction Qualified Code(s): N13.2 - Hydronephrosis with renal and ureteral calculous obstruction Vomiting Qualifiers: Vomiting type: unspecified Vomiting Intractability: non-intractable Nausea presence: with nausea Qualified Code(s): R11.2 - Nausea with vomiting, unspecified Condition: Good Disposition: HOME, SELF-CARE Instructions: Kidney Stone ([facility]) Additional Instructions: Follow-up with urology in 1 to 2 days. Return for any worsening symptoms. use the urine strainer as instructed. Take the medication as prescribed. Do not work, drive, take Tylenol, or operate machinery with the pain medication. drink plenty of fluids Prescriptions: Ondansetron HCl [Zofran 4 mg Tablet] 1 tab PO Q8HP PRN #14 tablet PRN Reason: For Nausea/Vomiting Oxycodone HCl/Acetaminophen [Percocet 5-325 mg Tablet] 1 tab PO Q4H PRN #15 tablet PRN Reason: For Pain Tamsulosin HCl [Flomax 0.4 mg Cap.sr] 0.4 mg PO DAILY #7 cap.sr.24h Referrals: AVIS RAY MD [Primary Care Provider] - Follow up in 3-5 days LINDA ESTRADA MD [NO LOCAL MD] - Follow up in 3-5 days
[2018-11-30 19:18] LABS: ALBUMIN 4.6 g/dL (3.5-5.0); ALKALINE PHOSPHATASE 49 U/L (38-126); ANION GAP 9 (5-19); ASPARTATE AMINO TRANSFERASE 31 U/L (17-59); BILIRUBIN,DIRECT 0.2 mg/dL (0.0-0.4); BILIRUBIN,TOTAL 0.4 mg/dL (0.2-1.3); BLOOD UREA NITROGEN 14 mg/dL (7-20); CALCIUM 9.8 mg/dL (8.4-10.2); CARBON DIOXIDE 30 mmol/L (22-30); CHLORIDE 103 mmol/L (98-107); GLUCOSE 115 mg/dL (75-110); POTASSIUM 4.1 mmol/L (3.6-5.0); TOTAL PROTEIN 7.5 g/dL (6.3-8.2)
[2018-11-30 19:24] LABS: APPEARANCE,URINE CLEAR; BILIRUBIN,URINE NEGATIVE (NEGATIVE); COLOR,URINE YELLOW; GLUCOSE, URINE NEGATIVE (NEGATIVE); KETONES,URINE NEGATIVE (NEGATIVE); LEUKOCYTE ESTERASE,URINE NEGATIVE (NEGATIVE); NITRITE,URINE NEGATIVE (NEGATIVE); PROTEIN,URINE NEGATIVE (NEGATIVE); URINE SPECIFIC GRAVITY 1.015; UROBILINOGEN,URINE NEGATIVE mg/dL (<2.0)
--- NOTE | 2018-11-30 20:46 | RADIOLOGY REPORT (SQ) ---
CT ABDOMEN PELVIS WITHOUT IV CONTRAST EXAM DATE: 11/30/2018 7:37 PM CDT HISTORY: Flank pain. Hematuria. COMPARISON: 03/17/2017 TECHNIQUE: CT scan of the abdomen and pelvis was performed without IV contrast. This exam was performed according to our departmental dose-optimization program, which includes automated exposure control, adjustment of the mA and/or kV according to patient size and/or use of iterative reconstruction technique. FINDINGS: The lung bases are clear. No pleural or pericardial effusions. Liver, gallbladder, spleen, pancreas, adrenal glands, and right kidney are normal. There is an 8 mm obstructing stone in the proximal left ureter with mild left hydronephrosis. There are additional nonobstructing stones in the left kidney. No bladder stones are seen. No small bowel obstruction. The appendix is normal. No evidence of acute diverticulitis. No adenopathy, free fluid, or free air is identified. The aorta is normal caliber. The osseous structures are intact. IMPRESSION: 8 mm obstructing stone in the proximal left ureter with mild left hydronephrosis.
[2018-11-30] MEDS ORDERED: OXYCODONE-ACETAMINOPHEN 5-325 MG TABLET PO ONE (20:56)
[2018-11-30] MEDS ORDERED: TAMSULOSIN HCL 0.4 MG CAP.SR.24H PO ONE (20:57)
[2018-11-30 21:31] VITALS: BP 127/77
[2018-11-30 21:57] LABS: CHLAM PCR NOT DETECTED (NOT DETECT)
== END 2018-11-30 21:31 | disposition home or self-care (01) ==
LOC: ER 17:26
DX: N13.2 Hydronephrosis with renal and ureteral calculous obstruction (principal); R11.2 Nausea with vomiting, unspecified; R10.9 Unspecified abdominal pain; R31.9 Hematuria, unspecified; R35.0 Frequency of micturition; F17.200 Nicotine dependence, unspecified, uncomplicated; I10 Essential (primary) hypertension; Z79.899 Other long term (current) drug therapy
CPT/HCPCS: 96376; 99284; 96361; 96374; 96375; 36415; 87086; 83690; 85025; 80053; 81001; 87491; 87591; 74176; J2270; J2405; J7030

== ENCOUNTER 2019-03-17 08:03 | Emergency (ER) | payer OTHER ==
--- NOTE | 2019-03-17 09:41 | RADIOLOGY REPORT (SQ) ---
EXAM DESCRIPTION: SHOULDER LEFT 2 OR MORE VIEWS COMPLETED DATE/TIME: 03/17/2019 9:24 am REASON FOR STUDY: decreased movement COMPARISON: None. NUMBER OF VIEWS: Three views. TECHNIQUE: Internal rotation, external rotation, and Y view images acquired of the left shoulder. LIMITATIONS: None. FINDINGS: MINERALIZATION: Normal. BONES: No acute fracture. No worrisome bone lesions. JOINTS: No dislocation. VISUALIZED LUNGS AND RIBS: No pneumothorax. No rib fracture. SOFT TISSUES: No radiopaque foreign body. OTHER: No other significant finding. IMPRESSION: NEGATIVE STUDY OF THE LEFT SHOULDER. NO RADIOGRAPHIC EVIDENCE OF ACUTE INJURY. TECHNICAL DOCUMENTATION: JOB ID: [id number] [employer]- All Rights Reserved Reading location - IP/workstation name: [email or web address]
--- NOTE | 2019-03-17 10:19 | ER Document Report ---
HPI - HPI Time Seen by Provider: 03/17/19 10:12 Pain Level: 3 Notes: 43-year-old male presents the ED for complaints of left shoulder pain that he sustained approximately 1 day ago when he was trying to push a hitch on his truck shut. States pain is 5 out of 10, throbbing achy. Has not tried any chsy-nag-flxrbmy medication. Worse with time, nothing makes better. Denies any other area of injury. Worse with movement. Denies fevers, chills, chest pain,palpitations, shortness of breath, dyspnea, nausea, vomiting, diarrhea, abdominal pain, hematuria,b LH, dizziness, syncope, headaches, , URI, neck pain, weakness, bowel or bladder dysfunction, saddle anesthesia, numbness or tingling in bilateral upper or lower extremities equally, muscle paralysis, weakness in bilateral upper or lower extremities equally or rash. - REPRODUCTIVE Reproductive: DENIES: : - MUSCULOSKELETAL Musculoskeletal: REPORTS: Extremity pain - left shoulder Past Medical History - General Information source: Patient - Social History Smoking Status: Never Smoker Chew tobacco use (# tins/day): No Frequency of alcohol use: None Drug Abuse: None Family History: CAD, CVA, DM, Hyperlipidemia, Hypertension, Thyroid Disfunction Patient has suicidal ideation: No Patient has homicidal ideation: No - Past Medical History Cardiac Medical History: Reports: Hx Hypercholesterolemia - takes metoprolol and amlodipine some times, Hx Hypertension Renal/ Medical History: Reports: Hx Kidney Stones. Denies: Hx Benign Prostatic Hyperplasia, Hx End Stage Renal Disease, Hx Peritoneal Dialysis, Hx Renal Insufficiency GI Medical History: Denies: Hx Crohn's Disease, Hx Diverticulitis, Hx Irritable Bowel, Hx Pancreatitis Past Surgical History: Reports: Hx Herniorrhaphy - remote inguinal hernia repair, Hx Inguinal Hernia - Immunizations Immunizations up to date: Yes Hx Diphtheria, Pertussis, Tetanus Vaccination: Yes Vertical Provider Document - CONSTITUTIONAL Agree With Documented VS: Yes Exam Limitations: No Limitations General Appearance: WD/WN Notes: PHYSICAL EXAMINATION:reviewed vital signs by RN GENERAL: Well-appearing, well-nourished and in no acute distress. HEAD: Atraumatic, normocephalic. EYES: Pupils equal round and reactive to light, extraocular movements intact, sclera anicteric, conjunctiva are normal. ENT: Nares patent, oropharynx clear without exudates. Moist mucous membranes. NECK: Normal range of motion, supple without lymphadenopathy LUNGS: Breath sounds clear to auscultation bilaterally and equal. No wheezes rales or rhonchi. HEART: Regular rate and rhythm without murmurs ABDOMEN: Soft, nontender, nondistended abdomen. No guarding, no rebound. No masses appreciated. Musculoskeletal: Normal range of motion, no pitting or edema. No cyanosis. left shoulder pain with abduction and flexion. pain to left trapezes muscle. no pain with supination, pronation, extension. Field Secretary + 2 BUE equally. APROM in shoulder. DTR +2 in BUE equally. Noted crepitus with APROM in elbow. negative drop arm, neer sign, fields test bilaterally. No vascular compromise. Neck with full APROM, no cervical spinal tenderness. No tenderness over clavicles or step off noted bilaterally. Strength 5 out of 5 in bilateral upper extremities equally. NEUROLOGICAL: Cranial nerves grossly intact. Normal speech, normal gait. Normal sensory, motor exams PSYCH: Normal mood, normal affect. SKIN: Warm, Dry, normal turgor, no rashes or lesions noted. - INFECTION CONTROL TRAVEL OUTSIDE OF THE [place] IN LAST 30 DAYS: No Course - Re-evaluation Re-evalutation: 03/17/19 15:52 Afebrile vital stable no distress. Nurse's notes reviewed. X-ray is negative for any fracture or dislocation, advised that this is likely due to musculoskeletal injury, will provide patient with a sling to wear for treatment, alternate between Tylenol and ibuprofen, apply heat 20 minutes on 20 minutes off several times a day. Discussed do not drive, drink or operate machinery while taking muscle relaxant constipation or impairment of cognitive function. Advised to follow-up with medicaid specialist symptoms become worse. After performing a Medical Screening Examination, I estimate there is LOW risk for OPEN FRACTURE, COMPARTMENT SYNDROME, DEEP VENOUS THROMBOSIS, ACUTE TENDON RUPTURE, or NEUROVASCULAR INJURY thus I consider the discharge disposition reasonable. I have reevaluated this patient multiple times and no significant life threatening changes are noted. The patient and I have discussed the diagnosis and risks, and we agree with discharging home to closely follow-up with their primary doctor or the referral orthopedist with the understanding that symptoms and presentations can change. We also discussed returning to the Emergency Department immediately if new or worsening symptoms occur. We have discussed the symptoms which are most concerning (e.g., changing or worsening pain, numbness, weakness) that necessitate immediate return 03/17/19 15:52 - Vital Signs Vital signs: Temp Pulse Resp BP Pulse Ox 97.9 F 70 16 128/91 H 98 03/17/19 08:06 03/17/19 08:06 03/17/19 08:06 03/17/19 08:06 03/17/19 08:06 Discharge - Discharge Clinical Impression: Left shoulder pain Condition: Stable Disposition: HOME, SELF-CARE Instructions: Muscle Relaxers ([facility]), Muscle Strain ([facility]), Myalagia (Muscle Pain) ([facility]), Exercise Program for the Shoulder ([facility]), Sling as Treatment ([facility]) Additional Instructions: X-ray of her shoulder was negative. Do not drive, drink or operate heavy machinery while taking muscle relaxers as a cause sedation or impairment of cognitive function. Return immediately for any new or worsening symptoms. Follow up with primary care provider, call tomorrow to make followup appointment. Prescriptions: Naproxen 500 mg PO BID #10 tablet Methocarbamol [Robaxin 500 mg Tablet] 500 mg PO QID PRN #15 tablet PRN Reason: Forms: Return to Work Referrals: AVIS RAY MD [Primary Care Provider] - Follow up as needed DELLA BROUSSARD MD [ACTIVE STAFF] - Follow up as needed
[2019-03-17 11:01] VITALS: BP 127/84
== END 2019-03-17 11:07 | disposition home or self-care (01) ==
LOC: ER 08:03
DX: M25.512 Pain in left shoulder (principal); X50.9XXA Other and unspecified overexertion or strenuous movements or postures, initial encounter; Y99.0 Civilian activity done for income or pay; E78.00 Pure hypercholesterolemia, unspecified; Z87.442 Personal history of urinary calculi
CPT/HCPCS: 99283

== ENCOUNTER 2019-11-05 05:11 | Emergency (ER) | payer OTHER ==
[2019-11-05] MEDS ORDERED: RINGERS SOLUTION,LACTATED 1,000 ML IV ONE (06:17)
--- NOTE | 2019-11-05 06:18 | ER Document Report ---
ED General - General Chief Complaint: Nausea/Vomiting/Diarrhea Stated Complaint: NAUSEA/VOMITING Time Seen by Provider: 11/05/19 06:08 Primary Care Provider: AVIS RAY MD [Primary Care Provider] - Follow up as needed Notes: 43-year-old male presents with 2 days of diarrhea and vomiting. He says that food goes right through him and has had dry heaves but has no abdominal pain, minimal back pain and no urinary symptoms other than decreased urine output. No known COVID exposures. Does not smoke marijuana or drink alcohol. Previous history of pancreatitis at this feels nothing like it. No travel history. TRAVEL OUTSIDE OF THE [place] IN LAST 30 DAYS: No - Related Data Allergies/Adverse Reactions: No Known Allergies Allergy (Verified 11/05/19 05:39) Home Medications: HTN. HIGH LIPIDS Past Medical History - General Information source: Patient - Social History Smoking Status: Former Smoker Frequency of alcohol use: None Drug Abuse: None Family History: CAD, CVA, DM, Hyperlipidemia, Hypertension, Thyroid Disfunction - Past Medical History Cardiac Medical History: Reports: Hx Hypercholesterolemia - takes metoprolol and amlodipine some times, Hx Hypertension Renal/ Medical History: Reports: Hx Kidney Stones. Denies: Hx Benign Prostatic Hyperplasia, Hx End Stage Renal Disease, Hx Peritoneal Dialysis, Hx Renal Insufficiency GI Medical History: Denies: Hx Crohn's Disease, Hx Diverticulitis, Hx Irritable Bowel, Hx Pancreatitis Past Surgical History: Reports: Hx Herniorrhaphy - remote inguinal hernia repair, Hx Inguinal Hernia - Immunizations Immunizations up to date: Yes Hx Diphtheria, Pertussis, Tetanus Vaccination: Yes Review of Systems - Review of Systems Notes: REVIEW OF SYSTEMS GEN: Denies fever, chills, weight loss ENT: Denies sore throat, nasal discharge, ear pain EYES: Denies blurry vision, eye pain, discharge CV: Denies chest pain, palpitations, edema RESP: Denies cough, shortness of breath, wheezing GI: HPI MSK: Denies joint pain/swelling, edema, SKIN: Denies rash, skin lesions LYMPH: Denies swollen glands/lymph nodes NEURO: Denies headache, focal weakness or numbness, dizziness PSYCH: Denies depression, suicidal or homicidal ideation PHYSICAL EXAMINATION General: No acute distress, well-nourished Head: Atraumatic, normocephalic ENT: Mouth normal, oropharynx moist, no exudates or tonsillar enlargement Eyes: Conjunctiva normal, pupils equal, lids normal Neck: No JVD, supple, no guarding CVS: Normal rate, regular rhythm, no murmurs Resp: No resp distress, equal and normal breath sounds bilaterally GI: Nondistended, soft, no tenderness to palpation, no rebound or guarding Ext: No deformities, no edema, normal range of motion in upper and lower ext Back: No CVA or midline TTP Skin: No rash, warm Lymphatic: No lymphadeopathy noted Neuro: Awake, alert. Face symmetric. GCS 15. Physical Exam - Vital signs Vitals: Temp Pulse Resp BP Pulse Ox 98.3 F 116 H 36 H 136/86 H 100 11/05/19 05:17 11/05/19 05:17 11/05/19 05:17 11/05/19 05:17 11/05/19 05:17 Course - Re-evaluation Re-evalutation: 11/05/19 15:17 Nausea vomiting dehydration Labs normal Given fluids Reassuring abdominal exam and no other emergent issues identified tolerating p.o. stable for discharge home with [facility] I have discussed with the patient there likely diagnosis, aftercare plan, follow-up plans and my usual and customary return precautions. They verbalized understanding of this. - Vital Signs Vital signs: Temp Pulse Resp BP Pulse Ox 98.6 F 83 20 133/86 H 100 11/05/19 08:29 11/05/19 08:29 11/05/19 08:29 11/05/19 08:29 11/05/19 08:29 - Laboratory Result Diagrams: 11/05/19 06:50 11/05/19 06:50 Laboratory results interpreted by me: 11/05/19 11/05/19 11/05/19 06:50 06:50 07:52 RDW 14.5 H Potassium 3.2 L Creatinine 1.26 H Total Protein 9.3 H Albumin 5.2 H Urine Ketones TRACE H Urine Urobilinogen 2.0 H Urine Ascorbic Acid 40 H Discharge - Discharge Clinical Impression: Dehydration, mild Condition: Good Disposition: HOME, SELF-CARE Instructions: Antinausea Medication ([facility]), Intravenous (IV) Fluids ([facility]) Additional Instructions: You have been evaluated for complaints or symptoms which could reflect infection with coronavirus/Covid-19 disease. In the emergency department we are incapable of testing every patient and given the prevalence of the disease in this community you should assume you are infected. Please stay at home with minimal interaction to others, wash your hands, practice social distancing while at home, and remained at home without any travel outside of the home for: 1. At least 3 days (72 hours) have passed since recovery defined as resolution of fever without the use of fever-reducing medications and improvement in respiratory symptoms (e.g., cough, shortness of breath) AND 2. At least 7 days have passed since symptoms first appeared. Prescriptions: Ondansetron [Zofran Odt 4 mg Tablet] 1 - 2 tab PO Q4H PRN #15 tab.rapdis PRN Reason: For Nausea/Vomiting Referrals: AVIS RAY MD [Primary Care Provider] - Follow up as needed
[2019-11-05 07:18] LABS: ABSOLUTE LYMPHOCYTES (AUTO) 1.7 10^3/uL (0.5-4.7); ABSOLUTE MONOCYTES (AUTO) 0.5 10^3/uL (0.1-1.4); ABSOLUTE NEUT (AUTO) 2.9 10^3/uL (1.7-8.2); BASOPHILS % (AUTO) 0.6 % (0-2); EOSINOPHILS % (AUTO) 0.5 % (0-6); HEMATOCRIT 46.4 % (37.9-51.0); HEMOGLOBIN 15.9 g/dL (13.5-17.0); LYMPHOCYTES % (AUTO) 33.5 % (13-45); MEAN CORPUSCULAR HEMOGLOBIN 29.3 pg (27.0-33.4); MEAN CORPUSCULAR HGB CONC 34.2 g/dL (32.0-36.0); MEAN CORPUSCULAR VOLUME 86 fl (80-97); MONOCYTES % (AUTO) 9.3 % (3-13); PLATELET COUNT 202 10^3/uL (150-450); RED BLOOD COUNT 5.43 10^6/uL (4.35-5.55); RED CELL DISTRIBUTION WIDTH 14.5 % (11.5-14.0); SEGMENTED NEUTROPHILS % (AUTO) 56.1 % (42-78); TOTAL CELLS COUNTED % (AUTO) 100 %; WHITE BLOOD COUNT 5.2 10^3/uL (4.0-10.5)
[2019-11-05 07:30] LABS: ALBUMIN 5.2 g/dL (3.5-5.0); ALKALINE PHOSPHATASE 66 U/L (38-126); ANION GAP 9 (5-19); ASPARTATE AMINO TRANSFERASE 37 U/L (17-59); BILIRUBIN,DIRECT 0.2 mg/dL (0.0-0.4); BLOOD UREA NITROGEN 16 mg/dL (7-20); CALCIUM 9.6 mg/dL (8.4-10.2); CARBON DIOXIDE 24 mmol/L (22-30); CHLORIDE 105 mmol/L (98-107); GLUCOSE 107 mg/dL (75-110); POTASSIUM 3.2 mmol/L (3.6-5.0); TOTAL PROTEIN 9.3 g/dL (6.3-8.2)
[2019-11-05 08:09] LABS: APPEARANCE,URINE CLEAR; BILIRUBIN,URINE NEGATIVE (NEGATIVE); COLOR,URINE YELLOW; GLUCOSE, URINE NEGATIVE (NEGATIVE); KETONES,URINE TRACE mg/dL (NEGATIVE); LEUKOCYTE ESTERASE,URINE NEGATIVE (NEGATIVE); NITRITE,URINE NEGATIVE (NEGATIVE); PROTEIN,URINE NEGATIVE (NEGATIVE); URINE SPECIFIC GRAVITY 1.019
[2019-11-05 08:23] LABS: URINE AMPHETAMINES SCREEN NEGATIVE; URINE BARBITURATES SCREEN NEGATIVE; URINE BENZODIAZEPINES SCREEN NEGATIVE; URINE COCAINE SCREEN NEGATIVE; URINE MARIJUANA (THC) SCREEN NEGATIVE; URINE METHADONE SCREEN NEGATIVE; URINE PHENCYCLIDINE SCREEN NEGATIVE
[2019-11-05 08:39] VITALS: BP 133/86
== END 2019-11-05 08:39 | disposition home or self-care (01) ==
LOC: ER 05:11
DX: E86.0 Dehydration (principal); R11.2 Nausea with vomiting, unspecified; R19.7 Diarrhea, unspecified; M54.9 Dorsalgia, unspecified; I10 Essential (primary) hypertension; Z87.19 Personal history of other diseases of the digestive system; Z79.899 Other long term (current) drug therapy; Z20.828 Contact with and (suspected) exposure to other viral communicable diseases
CPT/HCPCS: 99283; 96360; 36415; 83690; 85025; 87635; 80053; 81001; 80307; J7120; C9803